=== PATIENT | male | born 1945 | race Caucasian/White ===

== ENCOUNTER 2024-08-16 09:05 | Day surgery (SDC) | payer MEDICARE, OTHER ==
[~2024-08-16] VITALS: Ht 160 cm; Wt 59.0 kg
[~2024-08-16 09:05] MED LIST: ALLOPURINOL300 MG PO; ASPIR-LOW81 MG PO; GLUCOPHAGE XR500 MG PO; IBLOOD GLUCOSE TEST STRIP 1 EA TEST VI PRN; LACTATED RINGER'S 1,000 ML IV SCH; LIDOCAINE HCL 1% 5 ML SDV INJ ONE; LIPITOR20 MG PO; MIDAZOLAM HCL 5 MG/5 ML VIAL IV PRN; NAPROXEN500 MG PO; TIROSINT50 MCG PO; VALTREX500 MG PO; ZESTRIL40 MG PO; fentaNYL citrate 100 MCG/2 ML VIAL IV PRN
[2024-08-16 09:44] VITALS: BP 145/72
[2024-08-16] MEDS ORDERED: MIDAZOLAM HCL 5 MG/5 ML VIAL ONE (10:17)
[2024-08-16] MEDS ORDERED: fentaNYL citrate 100 MCG/2 ML VIAL ONE (10:17)
--- NOTE | 2024-08-16 10:40 | NUR ---
PT NOT AVAILABLE FOR VISIT. PROVIDED PRAYER.
[2024-08-16] MEDS ORDERED: ATROPINE SULFATE 1 MG/ML VIAL ONE (10:41)
--- NOTE | 2024-08-16 11:24 | NUR ---
08/16/24 1124 Tea Diaz 1111-PATIENT ARRIVED TO PACU ON RA DROWSY LAYING LEFT LATERAL ABDOMEN SOFT. PATIENTS GOWN ON RIGHT SIDE WET FROM SWEATING. PATIENT ORIENTED TO PACU DENIES PAIN OR NAUSEA. IVF INFUSING. SR HR 60'S. 1122-PATIENT AWAKE DROWSY DENIES PAIN OR NAUSEA. PASSING GAS. RA 97% PATIENT REPORTS "SEE 2 OF YOU" ENCOURAGED TO REST.
[2024-08-16 11:47] LABS: BASOPHILS 0.4 % (0-2); EOSINOPHILS 0.6 % (0-6); HEMATOCRIT 40.4 % (35.0-50.0); HEMOGLOBIN 13.7 g/dL (12.0-18.0); LYMPHOCYTES 15.5 % (24-44); MCH 33.2 (27-36); MCHC 33.8 g/dl (30-36); MCV 98.2 fl (81-99); MONOCYTES 7.5 % (0-12); PLATELET COUNT 219 K/uL (140-440); RBC 4.11 M/ul (4.3-5.7); RDW 13.1 (10.5-15.0)
[2024-08-16 12:14] LABS: ALBUMIN 3.3 g/dL (3.4-5.0); ALBUMIN/GLOBULIN RATIO 1.14 (1.1-2.4); ANION GAP 13.3 (7-21); BILIRUBIN, TOTAL 0.5 mg/dL (0.2-1.0); BUN/CREATININE RATIO 16.66 (6.0-28.6); CALCIUM 8.9 mg/dL (8.5-10.1); CREATININE, SERUM 1.26 mg/dL (0.70-1.30); POTASSIUM 4.3 mmol/L (3.5-5.1); PROTEIN, TOTAL 6.2 g/dL (6.4-8.2)
[2024-08-16 12:26] VITALS: BP 124/64
[2024-08-17 12:19] LABS: CARCINOEMBRYONIC ANTIGEN 43.7 ng/mL (())
--- NOTE | 2024-08-17 13:29 | OR ---
[facility] [address], [place] [address] Signed DATE OF OPERATION: 08/16/2024 SURGEON: Jl John MD PREOPERATIVE DIAGNOSES: 1. Heme-positive stool. 2. Abnormal CT scan of cecum (questionable 1.8 cm polyp) March 2024. POSTOPERATIVE DIAGNOSES: 1. Extensive diverticulosis, sigmoid and left colon. 2. Ulcerated neoplasm, proximal ascending colon; normal cecum. PROCEDURE: Total colonoscopy to cecum with cold morcellation, biopsy of proximal ascending neoplasm of colon. ANESTHESIA: Intravenous sedation; fentanyl 200 mcg, Versed 6 mg. INDICATION: This 79-year-old white man is a patient of Dr. Tam. He is known to me from the past having undergone colonoscopy in 2019 showing extensive diverticulosis and a hyperplastic polyp. He has no symptoms of bleeding, diarrhea, or constipation. He underwent a CT scan under the direction of Dr. Tam on March 12, 2024 showing no acute abnormality, but a focal nodular mural enhancement of the cecum 1.7 cm in size, thought to represent polyp or neoplasm. He is also noted to have nonobstructive small left kidney stone and enlarged prostate and severe coronary artery calcifications as well as colonic diverticulosis without inflammation. He has no family history of colon cancer. He is admitted at this time to undergo colonoscopy on the basis of the CT scan finding and heme-positive stool. He understands the risk of colonoscopy including but not limited to bleeding, infection, and perforation and wished to proceed. FINDINGS: The prep was good. He had extensive diverticular changes of the sigmoid and left colon for which a fair amount of time was required for safe passage. Ultimately, complete colonoscopy was undertaken showing good visualization of the cecum and no neoplasm of the cecum or ileocecal valve but indeed an ulcerated neoplasm of the proximal ascending colon. This was biopsied and tattooed for future reference. The remaining colon showed no other polyp or neoplasm, only diverticulosis. Electronically Signed By: JL JOHN MD 08/17/24 1329 PATIENT NAME: KEYANNA GRAY OPERATIVE REPORT DATE OF : 47 REPORT #: [id number] PHYSICIAN: JL JOHN MD PCP: KLAUS TAM DO REPORT IS CONFIDENTIAL AND NOT TO BE RELEASED WITHOUT AUTHORIZATION [facility] [address], [place] [address] Signed DESCRIPTION OF PROCEDURE: The patient was brought to the endoscopy suite and placed in the lateral decubitus position, given intravenous sedation to the point of slurred speech and nystagmus. Digital rectal examination showed an enlarged prostate. I did not feel specific nodule, however. The scope was passed in the rectum and manipulated throughout the colon noting extensive diverticular changes of the sigmoid. Various maneuvers were required for manipulation through this area. He did have vagal symptoms and signs including mild hypotension and mild bradycardia (systolic pressure 78, pulse 42). Additional fluids were given. Atropine was at the ready but not required. He recovered from this with time and the scope was then manipulated through this sigmoid, which was as previously noted, extremely tortuous and difficult. Once beyond the sigmoid, however, passage of the scope was rather easy. The scope was ultimately advanced to the cecum. The ileocecal valve and appendiceal orifice were normal. Irrigation was undertaken. The scope was withdrawn and noted a few cm above the ileocecal valve was a subtle but real ulcerated somewhat flat neoplastic process. Quite obviously it was cancer. Biopsies were obtained. Using a sclerotherapy needle, spot endoscopic tattoo marking was undertaken of the distal most extent of the neoplasm. From that point on, the scope was withdrawn and examination throughout showed no other polyps or concerns, only diverticulosis. The rectum was normal. Scope was removed and the patient was taken to the recovery room in good condition. CONCLUDING DIAGNOSES: 1. Neoplasm, proximal ascending colon. 2. No sign of abnormality in cecum proper. 3. Enlarged prostate. PLAN: He will need resection of the right colon. In the meantime, we will obtain a CEA, PSA, CBC and Chem-20 and see him back in the office in 1 to 2 weeks for further treatment planning. Jl John MD JM/MODL /[id number] Electronically Signed By: JL JOHN MD 08/17/24 1329 PATIENT NAME: KEYANNA GRAY OPERATIVE REPORT DATE OF : 47 REPORT #: [id number] PHYSICIAN: JL JOHN MD PCP: KLAUS TAM DO REPORT IS CONFIDENTIAL AND NOT TO BE RELEASED WITHOUT AUTHORIZATION [address] [address] Signed cc: Klaus Tam DO Copies: KLAUS TAM DO ~ Electronically Signed By: JL JOHN MD 08/17/24 1329 PATIENT NAME: KEYANNA GRAY Ehsan OPERATIVE REPORT DATE OF : 47 REPORT #: [id number] PHYSICIAN: JL JOHN MD PCP: KLAUS TAM DO REPORT IS CONFIDENTIAL AND NOT TO BE RELEASED WITHOUT AUTHORIZATION
== END 2024-08-16 12:35 | disposition home or self-care (01) ==
LOC: DS 09:05
PROVIDERS: ATTEND Surgery
PROC: 0DBF8ZX Excision of Right Large Intestine, Via Natural or Artificial Opening Endoscopic, Diagnostic (ICD-10-PCS; principal; 2024-08-16 11:30)
DX: K57.30 Diverticulosis of large intestine without perforation or abscess without bleeding (principal); C18.2 Malignant neoplasm of ascending colon; E03.9 Hypothyroidism, unspecified; M10.9 Gout, unspecified; I10 Essential (primary) hypertension; Z98.890 Other specified postprocedural states; Z88.0 Allergy status to penicillin; Z79.899 Other long term (current) drug therapy; Z86.0100 Personal history of colon polyps, unspecified
CPT/HCPCS: 36415; 80053; 82378; 84153; 85025; 99153; G0500; J0461; J2250; J3010; J7121

== ENCOUNTER 2024-09-21 17:53 | Inpatient (IN) | payer MEDICARE, OTHER ==
[~2024-09-21] VITALS: Ht 160 cm; Wt 59.0 kg
[~2024-09-21 17:53] MED LIST changes: -IBLOOD GLUCOSE TEST STRIP 1 EA TEST VI PRN; -LACTATED RINGER'S 1,000 ML IV SCH; -LIDOCAINE HCL 1% 5 ML SDV INJ ONE; -MIDAZOLAM HCL 5 MG/5 ML VIAL IV PRN; +ZESTRIL10 MG PO; -ZESTRIL40 MG PO; -fentaNYL citrate 100 MCG/2 ML VIAL IV PRN
[2024-09-25 09:22] VITALS: BP 139/76
[2024-10-02] VITALS (8 sets, daily range): BP systolic 121–137; BP diastolic 53–69
[2024-10-02] MEDS ORDERED: LACTATED RINGER'S 1,000 ML IV SCH ×2 (05:00→11:00)
[2024-10-02] MEDS ORDERED: B COMPLEX1 EACH PO (06:17)
[2024-10-02] MEDS ORDERED: [UNRECOGNIZED DRUG - OTHER] PO (06:19)
[2024-10-02] MEDS ORDERED: LIDOCAINE HCL 1% 5 ML SDV INJ ONE (07:00)
[2024-10-02] MEDS ORDERED: CEFAZOLIN SODIUM 2 GM/20 ML SYR IV SCH ×2 (07:00→14:00)
[2024-10-02] MEDS ORDERED: HEParin SOD (PORCINE) 5,000 UNIT/ML SDV SUB-Q SCH (07:00)
[2024-10-02] MEDS ORDERED: IBLOOD GLUCOSE TEST STRIP 1 EA TEST VI PRN (07:00)
[2024-10-02] MEDS ORDERED: metroNIDAZOLE/SODIUM CHLORIDE 500 MG/100 ML PIGGYBACK IV SCH ×2 (07:00→14:00)
--- NOTE | 2024-10-02 07:19 | NUR ---
VISITED DURING SPIRITUAL CARE ROUNDS. PT IN OVERALL GOOD SPIRITS, NO IMMEDIATE NEEDS. ASSEMBLY MECHANIC PROVIDED SUPPORTIVE PRESENCE, HOSPITALITY, PRAYER, FACILITATED INTERACTION WITH THERAPY ANIMAL. PT EXPRESSED GRATITUDE.
[2024-10-02] MEDS ORDERED: ondansetron HCL 4 MG/2 ML VIAL ONE (07:34)
[2024-10-02] MEDS ORDERED: DEXAMETHASONE SOD PHOS 4 MG/ML VIAL ONE (07:34)
[2024-10-02] MEDS ORDERED: dexmedeTOMIDine HCl 200 MCG/2 ML VIAL ONE (07:34)
[2024-10-02] MEDS ORDERED: KETAMINE in NS 50 MG/5 ML SYR ONE (07:34)
[2024-10-02] MEDS ORDERED: MAGNESIUM SULFATE 1 GM/2 ML VIAL ONE ×2 (07:34→09:03)
[2024-10-02] MEDS ORDERED: fentaNYL citrate 100 MCG/2 ML VIAL ONE (07:34)
[2024-10-02] MEDS ORDERED: propofoL 200 MG/20 ML VIAL ONE (07:34)
[2024-10-02] MEDS ORDERED: SODIUM CHLORIDE 0.9% 40 ML IV ONE ×3 (07:35→09:26)
[2024-10-02] MEDS ORDERED: LIDOCAINE HCL 2% 5 ML SDV ONE ×2 (07:35→09:03)
[2024-10-02] MEDS ORDERED: ACETAMINOPHEN 1,000 MG/100 ML VIAL ONE (07:35)
[2024-10-02] MEDS ORDERED: ROCURONIUM BROMIDE 50 MG/5 ML SYR ONE ×2 (07:35→09:49)
[2024-10-02] MEDS ORDERED: ePHEDrine sulfate 50 MG/ML AMP ONE (07:54)
[2024-10-02] MEDS ORDERED: Ropivacaine HCl 0.5% 30 ML VIAL ONE (09:26)
[2024-10-02] MEDS ORDERED: SUGAMMADEX SODIUM 200 MG/2 ML ML ONE (09:49)
[2024-10-02] MEDS ORDERED: KETOROLAC TROMETHAMINE 30 MG/ML VIAL ONE (09:54)
[2024-10-02] MEDS ORDERED: ENOXAPARIN SODIUM 40 MG/0.4 ML SYR SUB-Q SCH (10:55)
[2024-10-02] MEDS ORDERED: HYDROmorphone HCL 1 MG/ML SYR IV PRN ×2 (11:00→11:15)
[2024-10-02] MEDS ORDERED: KETOROLAC TROMETHAMINE 15 MG/ML VIAL IV PRN (11:00)
[2024-10-02] MEDS ORDERED: ondansetron HCL 4 MG/2 ML VIAL IV PRN ×2 (11:00→11:15)
[2024-10-02] MEDS ORDERED: ACETAMINOPHEN 1,000 MG/100 ML VIAL IV PRN (11:00)
[2024-10-02] MEDS ORDERED: MEPERIDINE HCL 25 MG/1 ML VIAL IV PRN (11:15)
[2024-10-02] MEDS ORDERED: NALOXONE HCL 0.4 MG SYR IV PRN (11:15)
[2024-10-02] MEDS ORDERED: fentaNYL citrate 50 MCG/ML SDV IV PRN (11:15)
--- NOTE | 2024-10-02 11:44 | NUR ---
PT TO FLOOR WITH RN KARTIK. PT AWAKE AND ORIENTED BUT SLIGHTLY LOOPY FROM ANESTHESIA. VS WNL, BARAJAS DRAINING LIGHT YELLOW URINE. ABD DRESSING SLIGHT DRAINAGE NOTED. CALL LIGHT IN REACH, NO FURTHER NEEDS AT THIS TIME.
--- NOTE | 2024-10-02 11:46 | NUR ---
10/02/24 1146 Leni Silva 1039 PT ARRIVED IN PACU NON RESPONSIVE TO NOXIOUS STIMULI WITH OPA IN PLACE. CHIN LIFT HELD BY RN. 1053 PT REACTIVE. OPA REMOVED. 1100 DR AT BEDSIDE TALKING WITH PT. 1105 C/O ABD PAIN 5/10. DECLINED PAIN MED WHEN OFFERED. 1115 PT TALKING WITH STAFF ABOUT [facility] AND VOL[facility]TEER WORK. C/O ABD PAIN /10. DECLINED PAIN MED WHEN OFFERED. PILLOW TO ABD FOR COMFORT. 1128 TO ROOM 116 VIA BED. REPORT GIVEN TO RN. BED PLUGGED IN.
--- NOTE | 2024-10-02 12:45 | NUR ---
ADMINISTERED PRN FOR 5\10 PAIN. DRESSING REMAINS UNCHANGED WITH SMALL AMT DRAINAGE. CALL LIGHT IN REACH. CLEAR LIQ TRAY WITHIN REACH, PT DOESN'T FEEL LIKE IT YET. BARAJAS DRAINING LIGHT YELLOW URINE. VS STABLE.
[2024-10-02] MEDS ORDERED: SEVOFLURANE 250 ML BTL INH ONE (12:50)
--- NOTE | 2024-10-02 13:36 | NUR ---
IN ROOM FOR POST-OP VS. PT ALERT AND ORIENTED, ANSWERS APPROPRIATELY. ASSISTED PT WITH FINDING PHONE IN PERSONAL BELONGINGS BAG. CALL LIGHT IN HAND, NO OTHER NEEDS AT THIS TIME.
[2024-10-02] MEDS ORDERED: ACETAMINOPHEN 500 MG TAB PO PRN (14:00)
--- NOTE | 2024-10-02 14:03 | NUR ---
UR CLINICAL REVIEW: 2 MN FOR VERSALUS-PER CNC MACHINIST MEETS INPT CRITERIA FOR COLECTOMY WITH NEED FOR IV ABX AND PAIN CONTROL MEDICARE INPT 10/02/24 @ 1056 ORDER MATCHES REG NO AUTH REQUIRED PER MEDICARE GUIDELINES DISCHARGE TO HOME WHEN STABLE
--- NOTE | 2024-10-02 14:42 | NUR ---
IN ROOM TO DO LAST SET OF POST-OP VS. PT ALERT AND ORIENTED, BUT TALKING ABOUT GOING TO CHECK HIS ANTIFREEZE AND OIL LEVELS. EDUCATED PT THAT HE WOULD HAVE TO WAIT TO DO SO. VISITOR IN ROOM. ICE WATER REFRESHED. CALL LIGHT WITHIN REACH, NO FURTHER NEEDS AT THIS TIME.
--- NOTE | 2024-10-02 15:20 | NUR ---
IN ROOM WITH MINA SHARP TO ADMINISTER ABX AND PAIN MEDICATIONS. PT IN BED, TALKING WITH VISITOR. CALL LIGHT WITHIN REACH, NO OTHER NEEDS AT THIS TIME.
--- NOTE | 2024-10-02 15:57 | EKG ---
[facility] [address] [facility] [place] [address] Signed Normal sinus rhythm Normal ECG No previous ECGs available Confirmed by Delio Canseco MD () on 10/02/2024 3:57:15 PM Electronically Signed By: DELIO CANSECO MD 10/02/24 1557 PATIENT NAME: KEYANNA GRAY Electrocardiogram DATE OF : 47 PHYSICIAN: DELIO CANSECO MD REPORT #: [id number] REPORT IS CONFIDENTIAL AND NOT TO BE RELEASED WITHOUT AUTHORIZATION
[2024-10-02] MEDS ORDERED: LEVOTHYROXINE50 MCG PO (16:31)
--- NOTE | 2024-10-02 17:39 | NUR ---
IN ROOM TO DO PT ASSESSMENT, PT IN BED REMINISCING ABOUT WELL HIS DOG, WHO WAS "[place]" AFTER SHE . PT REPORTS THAT HIS DOG SIX MONTHS AGO. PT TEARFUL WHEN TALKING ABOUT DOG. CALL LIGHT IN REACH, NO FURTHER NEEDS AT THIS TIME.
--- NOTE | 2024-10-02 18:13 | NUR ---
PT AMBULATED LAP IN [place]. TOLERATED WELL. GIVEN PRN TORADOL. DRESSING HAS SMALL AMT MORE DRAINAGE.
--- NOTE | 2024-10-02 19:17 | NUR ---
RECEIVED REPORT FROM MINA SHARP. PT RESTING IN BED COMFORTABLY. DENIES NEEDS OR CONCERNS AT THIS TIME. CALL LIGHT WITHIN REACH.
--- NOTE | 2024-10-02 20:33 | NUR ---
PT RESTING IN BED. VSS. USES CALL LIGHT APPROPRIATELY. REPORTS PAIN TO MIDLINE ABD INC 5/10-PRN IV DILAUDID ADMINISTERED. LSC. CPOX IN PLACE-RA. HRR. SCD'S IN PLACE. BTA. ABD TENDER. NON-DISTENDED. DENIES NAUSEA AND FLATUS. TOLERATING CL LIQ DIET. LBM TODAY. MIDLINE ABD DRSG W/ 4 SMALL SPOTS BLOODY DRNG. BARAJAS IN PLACE-CLEAR YELLOW URINE. LFA IV W/ LR INFUSING AT 85MLS/HR. CALL LIGHT WITHIN REACH. PT GIVEN APPLEJUICE PER REQUEST.
--- NOTE | 2024-10-02 20:51 | NUR ---
STATLOCK PLACE AND DID A BARAJAS CARE. DENIES FURTHER NEEDS AT THIS TIME.
--- NOTE | 2024-10-02 22:45 | NUR ---
PT SLEEPING SOUNDLY, APPEARS COMFORTABLE. CALL LIGHT WITHIN REACH.
[2024-10-03] VITALS (12 sets, daily range): BP systolic 103–135; BP diastolic 51–73
--- NOTE | 2024-10-03 00:32 | NUR ---
NEW BAG LR TERRELL. PT REPORTS ABD PAIN-MEDCATED W/ PRN IV DILAUDID. BARAJAS CATH EMPTIED OF 100cc CLEAR YELLOW URINE. CALL LIGHT WITHIN REACH.
--- NOTE | 2024-10-03 02:04 | NUR ---
SLEEPING SOUNDLY, APPEARS COMFORTABLE.
--- NOTE | 2024-10-03 02:15 | NUR ---
DX: 10/02 RIGHT COLECTOMY BY ALVARO R/T ADENOCARCINOMA. MIDLINE INC. CL LIQ DIET. BARAJAS IN PLACE. IVF INFUSING. ANCEF AND FLAGYL.
--- NOTE | 2024-10-03 03:36 | NUR ---
PT AWAKE, SLEEPING BETWEEN CARE. DENIES NEEDS AT THIS TIME.
[2024-10-03 05:21] LABS: BASOPHILS 0.1 % (0.2-1.2); EOSINOPHILS 0 % (0.8-7.0); LYMPHOCYTES 4.5 % (21.8-53.1); MCH 33.2 PG (25.7-32.2); MCHC 33.3 g/dL (32.3-36.5); MCV 99.5 fL (79.0-92.2); MONOCYTES 4.5 % (5.3-12.2); NEUTROPHILS 90.7 % (34.0-67.9); PLATELET COUNT 247 K/uL (163-337); RBC 3.92 M/uL (4.63-6.08)
[2024-10-03 05:32] LABS: ANION GAP 14.4 (7-21); BUN/CREATININE RATIO 18.71 (6.0-28.6); CALCIUM 8.2 mg/dL (8.5-10.1); CREATININE, SERUM 1.87 mg/dL (0.70-1.30); POTASSIUM 4.4 mmol/L (3.5-5.1)
--- NOTE | 2024-10-03 05:43 | NUR ---
PT AWAKE, TALKATIVE. REPORTS ABD PAIN-MEDICATED W/ PRN IV DILAUDID. BTA, ABD TENDER. PASSING SOME FLATUS AND BELCHING. MIDLINE ABD INC W/ DRNG UNCHANGED FROM PREVIOUS ASSESSMENT.
--- NOTE | 2024-10-03 08:42 | NUR ---
Patient in bed, alert and oriented x3, no acute distress. Patient reports 5/10 abdominal pain, admin toradol 15mg iv and dilaudid 1mg iv at this time. Patient reports he slept well last night. No nausea. Active bowel tones x4 quadrants, pt reports passing flatus. Abdominal dressing unchanged, small amount of dry serosang drainage noted. Family at bedside. Patient instructed to call for needs, pt reports his understanding.
--- NOTE | 2024-10-03 10:01 | NUR ---
Patient up walking with die casting supervisor assist. Patient appears to be tolerating ambulation well, even gait noted.
--- NOTE | 2024-10-03 10:10 | NUR ---
HOURLY ROUNDING. PATIENT AND I WALKED TWO LAPS AROUND THE NURSE STATION. PATIENT IS TRACIE BACK IN BED
[2024-10-03] MEDS ORDERED: VITAMIN D350 MCG PO (10:33)
[2024-10-03] MEDS ORDERED: MOVE FREE JOIN1 EACH PO (10:33)
--- NOTE | 2024-10-03 10:34 | NUR ---
medications reconciled using pharmacy records and patient interview
--- NOTE | 2024-10-03 10:54 | NUR ---
PT NOT AVAILABLE FOR VISIT. PROVIDED PRAYER.
--- NOTE | 2024-10-03 10:55 | NUR ---
HOURLY ROUNDING. PATIENT IS SITTING IN BED READING A BOOK. A DATA SYSTEMS ANALYST WAS GIVEN TO CHARGE HIS PHONE. NO REQUEST AT THIS TIME. CALL LIGHT HAS BEEN PLACED WITHIN REACH
--- NOTE | 2024-10-03 11:59 | OR ---
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 PROCEDURE: Right colectomy with end-to-side ileocolostomy. ANESTHESIA: General endotracheal; Shahzad Self PLANNING ASSISTANT and Yohan Ramos PLANNING ASSISTANT and postoperative TAP block. INDICATION: This 79-year-old white man is a patient of Dr. Klaus Tam. The patient underwent a CT scan in March 2024, which was thought this showed a small polyp of the cecum. He underwent colonoscopy by me on August 16, 2024 and found to have a proximal ascending colon ulcerated mass, most likely consistent with colon cancer. A CEA was obtained which was markedly elevated at 47.3. The patient has had no rectal bleeding, abdominal pain, or other sign of problems. The CT scan of the abdomen was repeated which continues to show no evidence of lesion of liver, but did show pericolonic adenopathy with lymph nodes as large as 8 mm. I have recommended right colectomy. On this occasion, would recommend an open approach so as to maximize lymphadenectomy. The risk of bleeding, infection, anastomotic failure, other unforeseen complications, and so forth was all reviewed with him. He understands and wished to proceed. FINDINGS: Endomark tattoo dye was well demonstrated in the area just above the ileocecal valve junction. A bulky tumor was noted there. It did not penetrate into the retroperitoneum proper. There was some pericolonic adenopathy and some Endomark tattoo dye had delineated mesenteric drainage basin which was of course incorporated in the resection. Transverse colon elsewhere had no such finding. The duodenum was normal. The liver was palpably and visibly normal as was the gallbladder. The operation went without problem with wide resection of the mesentery and primary anastomosis in an end-to-side Electronically Signed By: JL JOHN MD 10/03/24 1159 PATIENT NAME: KEYANNA GRAY OPERATIVE REPORT DATE OF : 47 REPORT #: [id number] PHYSICIAN: JL JOHN MD PCP: KLAUS TAM DO REPORT IS CONFIDENTIAL AND NOT TO BE RELEASED WITHOUT AUTHORIZATION [facility] [address], [place] [address] Signed configuration. DESCRIPTION OF PROCEDURE: The patient was brought to the operating room, given a general endotracheal anesthetic. He had undergone a full bowel prep including oral antibiotics and preoperative antibiotics. Ancef and Flagyl were given. Sequential compression device stockings used and heparin subcutaneously administered. After satisfactory general endotracheal anesthesia a Ashley catheter was placed without problem. The abdomen was clipped and prepared with chlorhexidine solution and draped sterilely. Palpation of the abdomen upon relaxation still revealed no sign of palpable mass. An incision was made above and below the umbilicus and later extended cephalad somewhat. The abdomen was entered without problem. Intra-abdominal inspection showed no sign of ascites or carcinomatosis. Small bowel was normal. The liver was palpably normal as was the gallbladder. The bulky firm tumor in the proximal ascending colon was easily identified. A Bookwalter retractor was affixed to the table. Small bowel was retracted to the left side isolating well. Approximately 8 inches of the terminal ileum and the entire right colon and transverse colon. The transverse colonic omentum was elevated cephalad and the right colon more fully examined. Endomark tattoo dye had egressed into the retroperitoneal tissues a bit and some hazel uptake was noted corresponding to the ileocolic artery and the right colic artery. The white line of Toldt was incised and using blunt electrocautery dissection, the right colon rotated to the midline completely as was the terminal ileum. The duodenum was easily identified. Wide resection of mesentery was anticipated, but with care to avoid of course any problem to the superior mesenteric artery or vein. The area for resection including all of the right colon was delineated and electrocautery used to incise the mesentery. Sequential application of hemostats and ultimately tonsil clamps in the deeper layer centrally was used to secure the mesenteric vessels. The major trunks were secured with double application of 0 silk ties. An 80 mm RAIMUNDO stapling device was used to transect the terminal ileum approximately 6 inches from the ileocecal valve. Similarly, the right transverse colon was similarly divided. Specimen was passed for Pathology, opened on the back table and found to have a somewhat deeper ulcerated lesion as expected. Plans were then made for anastomosis. The stapled end of the colon was oversewn with interrupted 3-0 silk suture anticipating an end-to-side ileocolostomy. This was accomplished in a two-layer technique of interrupted 3-0 silk suture in the Electronically Signed By: JL JOHN MD 10/03/24 1159 PATIENT NAME: KEYANNA GRAY OPERATIVE REPORT DATE OF : 47 REPORT #: [id number] PHYSICIAN: JL JOHN MD PCP: KLAUS TAM DO REPORT IS CONFIDENTIAL AND NOT TO BE RELEASED WITHOUT AUTHORIZATION [place] [id number] Signed serosal layer and interrupted 3-0 Vicryl in the mucosal layer. Excellent viability to the both proximal and distal segments was noted and wide patency to the anastomosis also noted. Gloves for all the team members were changed and the mesentery defect was reapproximated with interrupted 3-0 silk suture. Irrigation was undertaken with sterile saline solution. There was no evidence of bleeding or other problems. The retroperitoneal structures were intact without sign of injury. The omentum was replaced over the abdominal contents and plans made for closure. The midline fascia was reapproximated with running bidirectional #1 PDS suture. Subcutaneous tissue irrigated and the skin closed with a subdermal absorbable clipping device. Steri-Strips were applied as was an Acticoat dressing. The patient then underwent bilateral TAP blocks by the lodge sales associate. He was ultimately extubated and transferred to the recovery room in good condition having suffered no complication. Sponge, needle, and instrument counts were as correct x3. Blood loss was less than 25 cc. MD ARTURO Jaffe/[place] /[id number] cc: Klaus Tam DO Copies: KLAUS TAM DO ~ Electronically Signed By: JL JOHN MD 10/03/24 1159 PATIENT NAME: KEYANNA GRAY OPERATIVE REPORT DATE OF : 47 REPORT #: [id number] PHYSICIAN: JL JOHN MD PCP: KLAUS TAM DO REPORT IS CONFIDENTIAL AND NOT TO BE RELEASED WITHOUT AUTHORIZATION
--- NOTE | 2024-10-03 12:04 | NUR ---
Admin dilaudid 1mg iv and tylenol 1000mg po for reported 6/10 abdominal pain. Patient denies nausea. IV fluids infusing per order.
--- NOTE | 2024-10-03 13:00 | NUR ---
Attempted to walk patient at this time. Patient has visitors at the moment.
--- NOTE | 2024-10-03 14:59 | NUR ---
Patient ambulating in hallway with bag sewer assist.
--- NOTE | 2024-10-03 15:29 | NUR ---
Patient went on a walk around nursing satation x3 with SBA. Patient is now laying in bed with call light in reach and no further needs at this time.
--- NOTE | 2024-10-03 16:32 | NUR ---
Admin dilaudid 1mg iv and toradol 15mg iv for reported 6/10 abdominal pain. Patient denies nausea. Pt to take a walk at 1730 this evening. Patient denies further needs at this time.
--- NOTE | 2024-10-03 18:00 | NUR ---
Patient ambulated x3 large laps, tolerated well. Pt back to bed post walk. Patient tolerating clear liquids well, no nausea. Iv fluids infusing per order. Pt has no further needs at this time, personal supplies and call light within reach.
--- NOTE | 2024-10-03 19:36 | NUR ---
RECEIVED REPORT FROM MINA BLAKE. PT RESTING IN BED, STATES IS READY TO AMBULATE WHENEVER BEFORE BED. CALL LIGHT IN REACH.
--- NOTE | 2024-10-03 19:45 | NUR ---
PT READY TO WALK. LOADING MANAGER SBA PT FOR 4 LAPS AROUND UNIT. PT GAIT STEADY. VITALS AND I&O OBTAINED AND PT BACK IN BED. PT STATES NO FURTHER NEEDS AT THIS TIME. CALL LIGHT WITHIN REACH.
--- NOTE | 2024-10-03 20:00 | NUR ---
PT JUST FINISHED AMBULATING X MULTIPLE LAPS IN HALLS W/ SERVICE AGENT PERCY GLEASON. VSS. USES CALL LIGHT APPROPRIATELY. REPORTS MIDLINE ABD PAIN 09/15, MEDICATED W/ PRN IV DILAUDID AND STRESSED ABD SPLINTING. LSC. HRR. SCD'S IN PLACE TO BLE. BTA, MILDLY TENDER TO PALPATION. ABD SOFT AND FLAT. PASSING SOME FLATUS AND MINIMAL BURPING. LBM 10/02. TOLERATING CL. LIQ DIET. BARAJAS W/ CLEAR YELLOW URINE. LFA IV INFUSING LR @ 85MLS/HR. MIDLINE ABD DRSG W/ MULTIPLE SMALL SPOTS OF DRIED DRNG. CALL LIGHT WITHIN REACH. PT USED IS X10 AFTER EDUCATION.
--- NOTE | 2024-10-03 21:17 | NUR ---
SLEEPING SOUNDLY, APPEARS COMFORTABLE.
--- NOTE | 2024-10-03 23:15 | NUR ---
PT SLEEPING SOUNDLY. APPEARS COMFORTABLE. BREATHING EVEN AND UNLABORED.
[2024-10-04] VITALS (8 sets, daily range): BP systolic 127–179; BP diastolic 65–76
--- NOTE | 2024-10-04 01:15 | NUR ---
SLEEPING SOUNDLY. APPEARS COMFORTABLE.
--- NOTE | 2024-10-04 04:14 | NUR ---
PT SLEEPING SOUNDLY-APPEARS COMFORTABLE.
--- NOTE | 2024-10-04 06:43 | NUR ---
JENN GRIMES'Maria E INTACT. REPORTS ABD PAIN THIS AM-MEDICATED W/ PRN IV TORADOL. ASSISTED PT TO SIT EOB. PT STATED HAS BEEN HAVING FLATUS SINCE ABOUT 0300. CALL LIGHT WITHIN REACH.
--- NOTE | 2024-10-04 07:18 | NUR ---
Pt report received from MINA Harris. Pt is sitting at edge of bed, legs dangling, bedside table in front of him, and he appears anxious, rubbing his head. He states that he doesn't know if he is feeling "gas" or surgical pain, but he is cranky and is feeling "mean" and is trying to "talk to myself" because he is "just feeling mean. When asked what he needs in this moment, he stated he doesn't know, that he's just trying not to snap at the staff. Encouraged pt to continue expressing his needs and how he is feeling, and advised him that I will be back with pain meds and to assist him with ambulation to encourage the passing of gas. He verbalized understanding. White board updated.
--- NOTE | 2024-10-04 08:10 | NUR ---
PATIENT IN BED AT THIS TIME. SHELLFISH PROCESSING LABORER CHARTED HOURLY ROUNDS. CALL LIGHT WITHIN REACH, NO FURTHER NEEDS AT THIS TIME.
[2024-10-04] MEDS ORDERED: ENOXAPARIN SODIUM 30 MG/0.3 ML SYR SUB-Q SCH (09:00)
--- NOTE | 2024-10-04 09:45 | NUR ---
PATIENT IN BED AT THIS TIME. POLICE RESERVES COMMANDER CHARTED I&O'S, RN STUDENT CHARTED VITALS. CALL LIGHT WITHIN REACH, NO FURTHER NEEDS.
--- NOTE | 2024-10-04 10:15 | NUR ---
In with pt for pain assessment after administration of dilaudid this a.m. Pt is resting supine in bed, scd's on, reports pain is 2 out of 10 at this time and he states he feels pretty good. Reinforced the importance of ambulating often per Dr. Frye's orders and pt is agreeable. Pt up to ambulate ruben, PERCY with student MINA Long.
--- NOTE | 2024-10-04 10:30 | NUR ---
Notified by SN Long, that the pt ambulated 4 laps in the hallway and tolerated that well, then he voided 50ml urine. She then bladder scanned him for a volume of 0.
--- NOTE | 2024-10-04 11:20 | NUR ---
INTO SEE PATIENT. PERSONAL HEALTH INFORMATION REVIEWED. PATIENT LIVES ALONE IN A HOUSE WITH 3 STEPS BUT HAS BUILT A RAMP FOR FUTURE USE. USES A CANE SOMETIMES. DOES NOT USE WALKER, WHEELCHAIR, OXYGEN OR CPAP. PATIENT DOES DRIVE AT [place]. DOES HAVE FRIENDS IN TOWN WHO WILL PICK HIM UP AT TIME OF DISCHARGE. DENIES ANY DIFFCULTY PAYING UTLITIES OR OBTAINING FOOD. DENIES ANY CM NEEDS AT THIS TIME.
--- NOTE | 2024-10-04 11:31 | NUR ---
Pt missed ambulation at 0830 d/t administration of IV dilaudid and pt statement that he feels "dizzy" after administration. Pt did ambulate later around 1030 and I will continue to monitor the number of times he is OOB today
--- NOTE | 2024-10-04 12:00 | NUR ---
In with pt with Dr. Melva meyers.
[2024-10-04] MEDS ORDERED: LACTATED RINGER'S 1,000 ML IV ONE (12:15)
[2024-10-04] MEDS ORDERED: OXYCODONE HCL 5 MG TAB PO PRN (12:15)
[2024-10-04] MEDS ORDERED: ACETAMINOPHEN 500 MG TAB PO PRN (12:15)
[2024-10-04] MEDS ORDERED: IBUPROFEN 600 MG TAB PO PRN (12:15)
--- NOTE | 2024-10-04 13:06 | NUR ---
Pt provided with PO Pain meds per emar, IVF LR Bolus running, Addie Diaz ambulating with pt in hallway at this time. Notified Student Nurse that the pt was going to be ambulating/needed to ambulate. Updated SN on meds administered and that pt was changed to Full Liq Diet per Dr. Frye.
--- NOTE | 2024-10-04 15:40 | NUR ---
PATIENT IN BED AT THIS TIME. FOOD COUNTER WORKER ASSISTED PATIENT IN WALKING 4 LAPS AROUND HALLS. CALL LIGHT WITHIN REACH, NO FURTHER NEEDS AT THIS TIME.
--- NOTE | 2024-10-04 16:34 | NUR ---
PATIENT IN BED AT THIS TIME. THIS SPEECH PROFESSOR OFFERED PATIENT A SHOWER, PATIENT REFUSED. CALL LIGHT WITHIN REACH, NO FURTHER NEEDS AT THIS TIME.
--- NOTE | 2024-10-04 18:14 | NUR ---
PATIENT IN BED AT THIS TIME. AD TERMINAL MAKEUP OPERATOR CHARTED VITALS AND I&O'S. CALL LIGHT WITHIN REACH, NO FURTHER NEEDS.
--- NOTE | 2024-10-04 18:22 | NUR ---
PRN PAIN MEDICATION ADMINISTERED, SEE MAR. PATIENT'S LEFT FOOT IS PALE AND COOL TO THE TOUCH. PEDAL PULSE IS 2+. PATIENT STATES THIS IS NORMAL FOR HIM. WARM BLANKET APPLIED TO BOTH OF PATIENT'S FEET. PATIENT HAS NO OTHER REQUESTS, CALL LIGHT AND PERSONAL BELONGINGS IN REACH.
--- NOTE | 2024-10-04 19:23 | NUR ---
RECEIVED REPORT FROM MINA RIVAS. PT SITTING EOB, READY TO AMBULATE WHEN STAFF AVAILABLE.
--- NOTE | 2024-10-04 20:09 | NUR ---
CHANNEL ACCOUNT MANAGER ASSISTED PT TO WALK 1 LAP AROUND UNIT. PT BACK IN BED AND CHANNEL ACCOUNT MANAGER OBTAINED VITALS AND I&O. PT STATES NO FURTHER NEEDS AT THIS TIME. CALL LIGHT WITHIN REACH.
--- NOTE | 2024-10-04 21:00 | NUR ---
PT RESTING IN BED. COMPLETED HS WALK W/ LEONORA GLEASON. USES CALL LIGHT APPROPRIATELY. VSS. REPORTS [facility] ABD PAIN 5/10-MEDICATED W/ PRN OXYCODONE. REMINDED PT TO USE ABD SPLINTING FOR PAIN WELL. LSC. IS AT BEDSIDE. HRR. SCD'S IN PLACE TO BLE. BT HYPERACTIVE. ABD SOFT AND FLAT. TENDER TO [facility] INC. PASSING FLATUS AND REPORTS 2 SM BM'S TODAY. MIGEL FULL LIQ DIET. DENIES NAUSEA. [facility] ABD DRSG W/ SPOTS OF DRIED DRNG. LFA IV INFUSING LR @ 85MLS/HR. CALL LIGHT WITHIN REACH. PT REPOSITIONED SELF TO RIGHT SIDE LAYING.
--- NOTE | 2024-10-04 21:58 | NUR ---
PT USED URINAL IND. REPORTS RESTING COMFORTABLY CURRENTLY.
[2024-10-05] VITALS (8 sets, daily range): BP systolic 138–156; BP diastolic 71–80
--- NOTE | 2024-10-05 00:26 | NUR ---
PT SLEEPING SOUNDLY. APPEARS COMFORTABLE. CALL LIGHT WITHIN REACH.
--- NOTE | 2024-10-05 02:07 | NUR ---
NEW BAG KD TEJADA, PT AWAKENS BRIEFLY, DENIES NEEDS.
--- NOTE | 2024-10-05 05:01 | NUR ---
PT AWAKE, REPORTS BEING COMFORTABLE. BTA, PASSING FLATS. USED URINAL W/O DIFFICULTY. CALL LIGHT WITHIN REACH.
--- NOTE | 2024-10-05 06:22 | NUR ---
DX: 10/02 RIGHT COLECTOMY R/T ADENOCARCINOMA. ABD PAIN-PRN MEDS NOW PO. IVF INFUSING. MIGEL FULL LIQ DIET. [facility] ABD INC W/ DRIED DRNG. AMBULATING IN HALLS Q 2 HRS WHILE AWAKE PER MD ORDERS.
--- NOTE | 2024-10-05 06:23 | NUR ---
SPECIAL AGENT SECRET SERVICE OBTAINED VITALS HI&O. PT STATES NO NEEDS AT THIS TIME. CALL LIGHT WITHIN REACH.
--- NOTE | 2024-10-05 06:43 | NUR ---
PT SLEEPING, APPEARS COMFORTABLE.
--- NOTE | 2024-10-05 07:00 | NUR ---
Pt report received from MINA Harris. SN Long present. Pt is awake, resting supine in bed, states he slept alright but also states he felt a little rough after 5pm yesterday (pt did ambulate the hallways several times throughout day shift, about 4 laps of the med-surg floor, each time). Currently he rates his pain a 5 out of 10 but states he isn't sure if it's because he might have to urinate or not. White board updated. Call light in reach.
--- NOTE | 2024-10-05 08:15 | NUR ---
INTO SEE PATIENT. PATIENT STATING HE WAS IN A BIT OF PAIN PATIENT SAID PRIMARY NURSE AWARE. HE HAD GONE 14 HOURS WITHOUT ANY PAIN MEDICINE. PATIENT TO DISCHARGE HOME WHEN MEDICALLY CLEARED. NO FUTHER NEEDS.
--- NOTE | 2024-10-05 09:45 | NUR ---
SN obtained vitals. Pt resting comfortably. call light within reach.
--- NOTE | 2024-10-05 10:28 | NUR ---
PATIENT IS IN BED AT THIS TIME, ORIENTATION AND MOBILITY INSTRUCTOR CHARTED I&O'S, AMMONIA REFRIGERATION WORKER SAID SHE GOT HIS VITALS AND WILL CHART THEM HERE SHORTLY. CALL LIGHT WITH IN REACH AND NOTHING ELSE NEEDED AT THIS TIME.
--- NOTE | 2024-10-05 11:39 | NUR ---
VISITED DURING SPIRITUAL CARE ROUNDS. PT GRIMACING, STATED DESIRE FOR PAIN RELIEF, EXPRESSED PEACE, DEVONTE SOURCE OF STRENGTH. FAMILY CENTERED SPECIALIST PROVIDED SUPPORTIVE PRESENCE, HOSPITALITY, PRAYER, ADVOCATED FOR PATIENT WITH NURSING STAFF. NURSING STAFF INDICATED INTENT TO CHECK ON PATIENT. PATIENT EXPRESSED GRATITUDE.
--- NOTE | 2024-10-05 11:57 | NUR ---
In with pt for med administration. Pt up to use urinal in bathroom then plans to ambulate hallways.
--- NOTE | 2024-10-05 12:25 | NUR ---
In with pt while Dr. Frye present. Dr. Frye removed abdominal dressing and informed pt he can have a shower today. Bathroom set up with items for pt to shower after lunch, and advised Aides Tamara and Rosario that the pt needs to ambulate at this time, so they can provide SBA.
--- NOTE | 2024-10-05 14:03 | NUR ---
Advised by operations architect that pt is complaining of pain. Pt is resting supine in bed, laughing and talking on his cell phone.
--- NOTE | 2024-10-05 14:39 | NUR ---
PATIENT WAS IN THE SHOWER, I ASSISTED HIM BACK TO BED. CLEANED UP THE SHOWER ROOM. TOOK VITALS AND TIDYED HIS ROOM, TOOK PATIENT ON A WALK AND BACK TO ROOM. CALL LIGHT WITH IN REACH AND NOTHING ELSE NEEDED AT THIS TIME.
--- NOTE | 2024-10-05 14:57 | NUR ---
Pt had a shower and states that it felt very good to take one. Pt now ambulating hallway, using a cane, with Aidharry Diaz.
--- NOTE | 2024-10-05 18:36 | NUR ---
PATIENT IS IN BED AT THIS TIME, COLLECTIONS SPECIALIST CHARTED VITALS AND I&O'S, COLLECTIONS SPECIALIST ASSISTED PATIENT WITH A WALK, HE BRUSHED HIS TEETH AND BACK TO BED. CALL LIGHT WITH IN REACH AND NOTHING ELSE NEEDED AT THIS TIME.
--- NOTE | 2024-10-05 19:15 | NUR ---
REPORT RECEIVED FROM ROB ENRIQUEZ. BOARD UPDATED. pt DENIES ANY NEEDS AT THIS TIME. CALL LIGHT WITHIN REACH.
--- NOTE | 2024-10-05 20:38 | NUR ---
MOSAIC WORKER OBTAINED VITALS AND I&O. PT STATES NO NEEDS AT THIS TIME. CALL LIGHT WITHIN REACH.
--- NOTE | 2024-10-05 21:30 | NUR ---
ASSESSMENT AND VITAL SIGNS DONE. [facility] HAS STERI STRIPS WITH MINIMAL DRAINAGE AND INTACT. IV ASSESSED, WNL. pt DENIES ANY OTHER NEEDS AT THIS TIME. CALL LIGHT WITHIN REACH.
--- NOTE | 2024-10-05 23:18 | NUR ---
pt RESTING IN THE BED EYES CLOSED. RR EVEN AND UNLABORED. CALL LIGHT WITHIN REACH.
--- NOTE | 2024-10-06 00:29 | NUR ---
IN RM TO CHECK ON pt. URINAL EMPTIED. pt DENIES ANY OTHER NEEDS AT THIS TIME. CALL LIGHT WITHIN REACH.
--- NOTE | 2024-10-06 02:15 | NUR ---
pt RESTING IN THE BED. URINAL EMPTIED. pt DENIES ANY OTHER NEEDS AT THIS TIME. CALL LIGHT WITHIN REACH.
--- NOTE | 2024-10-06 04:17 | NUR ---
pt RESTING IN THE BED WITH EYES CLOSED. RR EVEN AND UNLABORED. CALL LIGHT WITHIN REACH.
[2024-10-06 05:20] VITALS: BP 151/79
[2024-10-06 05:21] LABS: BASOPHILS 0.7 % (0.2-1.2); EOSINOPHILS 1.3 % (0.8-7.0); HEMATOCRIT 40.6 % (40.1-51.0); HEMOGLOBIN 13.4 g/dL (13.7-17.5); LYMPHOCYTES 15.8 % (21.8-53.1); MCH 32.7 PG (25.7-32.2); MONOCYTES 8.8 % (5.3-12.2); NEUTROPHILS 73.1 % (34.0-67.9); PLATELET COUNT 213 K/uL (163-337)
--- NOTE | 2024-10-06 05:21 | NUR ---
CADDY MASTER OBTAINED VITALS AND I&O. PT STATES NO NEEDS AT THIS TIME. CALL LIGHT WITHIN REACH.
[2024-10-06 05:31] LABS: ANION GAP 10.1 (7-21); BUN/CREATININE RATIO 12.5 (6.0-28.6); CALCIUM 8.5 mg/dL (8.5-10.1); CREATININE, SERUM 0.96 mg/dL (0.70-1.30); POTASSIUM 4.1 mmol/L (3.5-5.1)
--- NOTE | 2024-10-06 07:28 | NUR ---
MORNING REPORT RECIEVED FROM MINA SANTAMARIA. PT LAYING IN BED WITH EYES CLOSED, CHEST RISE EQUAL BILAT. PT HAS CALL LIGHT IN REACH AND WILL AMBULATE THE HALLS ONCE AWAKE THIS MORNING.
--- NOTE | 2024-10-06 08:15 | NUR ---
PATIENT IN BED AT THIS TIME. BUSINESS MGR CHARTED HOURLY ROUNDS. CALL LIGHT WITHIN REACH, NO FURTHER NEEDS AT THIS TIME.
--- NOTE | 2024-10-06 08:30 | NUR ---
PT SITTING UP IN BED AT THIS TIME, PT HAS NO CURRENT CONCERNS AND "PAIN IS MANAGABLE PT STATES". PT HAS NO OTHER CONCERNS AND CALL LIGHT IN REACH.
[2024-10-06 09:47] VITALS: BP 140/68
--- NOTE | 2024-10-06 09:50 | NUR ---
PATIENT IN BED AT THIS TIME. CYLINDER DIE MACHINE HELPER CAHRTED VITALS AND I&O'S. CYLINDER DIE MACHINE HELPER OFFERED PATIENT A SHOWER, PATIENT STATED HE WOULD THINK ABOUT HAING ONE LATER IN AFTERNOON. CALL LIGHT WITHIN REACH, NO FURTHER NEEDS.
--- NOTE | 2024-10-06 10:07 | NUR ---
PATIENT IN BED AT THIS TIME. WATERPROOFING MACHINE OPERATOR AND PATIENT WALKED 4 LAPS AROUND HALLS. CALL LIGHT WITHIN REACH, NO FURTHER NEEDS AT THIS TIME.
[2024-10-06 10:16] VITALS: BP 140/68
[2024-10-06] MEDS ORDERED: OXYCODONE HCL5 MG PO (11:41)
[2024-10-06] MEDS ORDERED: ACETAMINOPHEN500 MG PO (11:41)
[2024-10-06] MEDS ORDERED: IBUPROFEN600 MG PO (11:41)
--- NOTE | 2024-10-06 12:45 | NUR ---
PT DC PACKET GIVEN AND EXPLAINED TO PT AT THIS TIME, PT HAS NO CURRENT QUESTIONS AND HAS IV ACCESS REMOVED WNL ALL BELONGINGS RETURNED TO PT AND PT TRANSPORTATION IS ON THEIR WAY, PT HAS CALL LIGHT IN REACH.
--- NOTE | 2024-10-06 13:08 | NUR ---
PT GIVEN WRITTEN AND VERBAL INSTRUCTIONS PRIOR TO DC, PT HAS NO FUTHER QUESTIONS AT THIS TIME AND WAS TRASNPORTED VIA WC.
--- NOTE | 2024-10-08 09:24 | DS ---
[facility] [address] [place], [place] [address] Signed ADMISSION DATE: 10/02/2024 DISCHARGE DATE: 10/06/2024 REASON FOR ADMISSION: Proximal right colon adenocarcinoma for resection. HISTORY OF PRESENT ILLNESS: This 79-year-old white man is a patient Dr. Klaus Tam, has been identified as having a tumor in the right colon just above the junction of the ileum to the cecum. He is admitted to undergo right colectomy. CEA preoperatively is 47.3. A CT scan shows no sign of metastatic disease, but did show suspicious adenopathy of the right colonic mesentery. PERTINENT PHYSICAL EXAMINATION: GENERAL: Relatively thin white man, in no acute distress. NECK: Trachea is midline. CHEST: Clear. HEART: Regular without murmur. ABDOMEN: Soft and nontender. There is no palpable mass. EXTREMITIES: Show no clubbing, cyanosis, or edema. HOSPITAL COURSE: On October 02, 2024, he underwent right colectomy with end-to-side ileocolostomy. 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 Postoperatively, he was maintained on a clear liquid diet the night of surgery, advanced promptly to full liquids and ultimately a regular diet. By day of discharge, he is ambulating well, tolerating a regular diet, has minimal incisional pain with oral analgesia and has had bowel movements. Follow up plan; he will call my office on Tuesday to set up an appointment for four weeks or so. He is instructed to lift no more than 20 pounds for the next month. He should walk on a daily basis to avoid blood clots in the legs. DISCHARGE MEDICATIONS: 1. Ibuprofen 600 mg p.o. q.6 hours as needed for moderate pain #60, refill one. 2. Oxycodone 5 mg one tablet p.o. q.6 hours as needed for greater pain #10. 3. Tylenol 500 mg two tablets p.o. q.6 hours as needed for pain #60. 4. He will continue his usual medications of allopurinol 300 mg p.o. daily, atorvastatin 20 mg p.o. daily, lisinopril 10 mg p.o. daily, vitamin B complex one tablet p.o. daily. Electronically Signed By: JL JOHN MD 10/08/24 0924 PATIENT NAME: KEYANNA GRAY DISCHARGE SUMMARY DATE OF : 47 REPORT #: [id number] PHYSICIAN: JL JOHN MD PCP: KLAUS TAM DO REPORT IS CONFIDENTIAL AND NOT TO BE RELEASED WITHOUT AUTHORIZATION [facility] [address] [place], [place] [address] Signed 5. L-carnitine lipoic acid one tablet p.o. b.i.d. 6. Synthroid 50 mcg p.o. daily. 7. Vitamin D3 2000 units p.o. twice a day. 8. Glucosamine chondroitin 1 tab p.o. daily. DISCHARGE DIAGNOSES: 1. Right colon adenocarcinoma, status post right colectomy, October 02, 2024. 2. Hypertension. 3. Hypothyroidism. Jl John MD JM/MODL /[id number] cc: Klaus Tam DO Copies: KLAUS TAM DO ~ Electronically Signed By: JL JOHN MD 10/08/24 0924 PATIENT NAME: KEYANNA GRAY DISCHARGE SUMMARY DATE OF : 47 REPORT #: [id number] PHYSICIAN: JL JOHN MD PCP: KLAUS TAM DO REPORT IS CONFIDENTIAL AND NOT TO BE RELEASED WITHOUT AUTHORIZATION
--- NOTE | 2024-10-11 16:56 | PATH ---
[facility] [address] [facility] [place], [place] [address] Signed SPECIMEN(S): A RIGHT COLON WITH MASS SPECIMEN SOURCE: A. RIGHT COLON WITH MASS CLINICAL HISTORY: Right colon cancer. FINAL PATHOLOGIC DIAGNOSIS: Right colon with mass: - Invasive moderately differentiated adenocarcinoma. - See checklist. COLON AND RECTUM: Resection Applies To: Specimen A. SPECIMEN Procedure: Right hemicolectomy TUMOR Tumor Site: Ascending colon Histologic Type: Adenocarcinoma Histologic Grade: G2, moderately differentiated Tumor Size: Greatest dimension (Centimeters) - 4.1 x 2.3 x 1.9 cm Tumor Extent: Invades through muscularis propria into the pericolonic or perirectal tissue Macroscopic Tumor Perforation: Not identified Lymphatic and / or Vascular Invasion: Not identified Perineural Invasion: Not identified Number of Tumor Buds: 5 per 'hotspot' field Tumor Budding Score: Intermediate (5-9) Type of Polyp in which Invasive Carcinoma Arose: None identified Treatment Effect: No known presurgical therapy MARGINS Margin Status for Invasive Carcinoma: All margins negative for invasive carcinoma Closest Margin(s) to Invasive Carcinoma: Retroperitoneal soft tissue margin. Distance from Invasive Carcinoma to Closest Margin: 4.5 cm Margin Status for Non-Invasive Tumor: All margins negative for high-grade dysplasia / intramucosal carcinoma and low-grade dysplasia REGIONAL LYMPH NODES Regional Lymph Node Status: Tumor present in regional lymph node(s) Number of Lymph Nodes with Tumor: 1 PATIENT NAME: KEYANNA ESTRADA PATHOLOGY DATE OF : 47 REPORT #: [id number] PHYSICIAN: BONG PATHOLOGY PCP: ANU TAM DO REPORT IS CONFIDENTIAL AND NOT TO BE RELEASED WITHOUT AUTHORIZATION [facility] [address] [place], [place] [address] Signed Number of Lymph Nodes Examined: 28 Tumor Deposits: Present Number of Tumor Deposits: 1 pTNM CLASSIFICATION (AJCC 8th Edition) pT Category: pT3 pN Category: pN1a COMMENT: As part of the [facility] clinical quality rn program the case has been reviewed by a second pathologist (REYNA). Microsatellite instability testing previously reported on case [id number] was reported as "normal pattern". JVR MICROSCOPIC EXAMINATION: Histologic sections of all submitted blocks are examined by light microscopy. These findings, together with the gross examination, support the pathologic diagnosis. A cytokeratin AE1/3 immunostain is performed with appropriate controls on block A7 and supports the diagnosis. A cytokeratin 20 immunostain performed on block A7 is negative within the tumor. A calretinin immunostain is performed on block A7 and highlights mesothelial cells and is focally positive within the tumor. A CDX2 immunostain is performed with appropriate controls on block A7 and is positive within tumor nuclei. Immunostains performed on block A7 with appropriate controls for cytokeratin seven, Wilm's Tumor antibody, OCT4, D2-40, Sall4, and TTF-1, are all negative within the tumor cells. Immunostain performed with appropriate controls on block A7 for villin are positive within the tumor cells. JVR GROSS DESCRIPTION: The specimen, labeled and designated "Rito Estrada, right colon with mass," is received in formalin and consists of a portion of previously opened right colon, terminal ileum with an attached appendix and pericolonic adipose tissue. The right colon is 13.5 cm in length and has an average internal circumference of 6.5 cm. The terminal ileum is 7.4 cm in length and has an average internal circumference of 3.5 cm. The appendix measures 6.4 x 0.7 cm. The serosal surface is subramanian-pink and smooth, and adherent to red membranous tissue with a PATIENT NAME: KEYANNA ESTRADA PATHOLOGY DATE OF : 47 REPORT #: [id number] PHYSICIAN: BONG WILLIAMSON PCP: ANU TAM DO REPORT IS CONFIDENTIAL AND NOT TO BE RELEASED WITHOUT AUTHORIZATION [facility] [address] [place], [place] [address] Signed black dye discoloration. The serosa around this is a adherent membranous tissue is puckered and inked blue at the time of grossing. Upon opening 4.1 x 2.3 x 1.9 cm pink centrally ulcerated mass with heaped up edges. This mass is located 8.2 cm from the distal resection margin, 8.5 cm from the proximal resection margin, 4.5 cm from the closest retroperitoneal soft tissue resection margin, and 10.2 cm from the vascular root resection margin. Involvement of the appendiceal orifice or ileocecal valve is not grossly identified. Sectioning through the mass reveals extension through the muscularis propria and into the adjacent to pericolonic adipose tissue. The mass abuts the blue inked serosal surface. Adjacent to the mass within the pericolonic adipose tissue is a 3.6 x 3.5 x 3.0 cm area of yellow-white matted lymph nodes. These lymph nodes are grossly positive for tumor. The remaining mucosa is yellow-subramanian and finely granular. The right colon has an average wall thickness of 0.7 cm. The mucosa of the terminal ileum is yellow-subramanian and finely granular. The terminal ileum has an average wall thickness of 0.8 cm. The appendix displays a yellow-subramanian mucosa with a pinpoint lumen. Upon dissection of the attached pericolonic adipose tissue multiple possible lymph nodes are grossly identified. Several of these lymph nodes are grossly positive for tumor. Ingot Supervisor sections are submitted in 19 cassettes. Cassette Summary: (A1) distal resection margin, shave (A2) proximal resection margin, shave (A3) vascular root resection margin, shave (A4) retroperitoneal soft tissue resection margin, shave (A5) appendix (A6) mass to adjacent pericolonic adipose tissue (A7) mass to uninvolved bowel wall and serosal surface and area of puckering (A8) additional sections of mass (A9) omentum (A10-A11) access service representative sections of matted lymph nodes adjacent to mass (A12) one possible lymph node, trisected (A13) six possible lymph nodes, submitted whole (A14) five possible lymph nodes, submitted whole (A15) four possible lymph nodes, submitted whole (A16) four possible lymph nodes, submitted whole (A17) five possible lymph nodes, submitted whole PATIENT NAME: KEYANNA ESTRADA PATHOLOGY DATE OF : 47 REPORT #: [id number] PHYSICIAN: BONG WILLIAMSON PCP: ANU TAM DO REPORT IS CONFIDENTIAL AND NOT TO BE RELEASED WITHOUT AUTHORIZATION [address] [address] Signed (A18) two possible lymph nodes each bisected one arbitrarily inked (A19) one possible lymph node grossly positive for tumor, access service representative sections FB (under the direct supervision of a pathologist) The Gross Description was prepared using a voice recognition system. The report was reviewed for accuracy; however, sound-alike word errors, addition and/or deletions may occur. If there is any question about this report, please contact Client Services. ADDITIONAL NOTES: Immunohistochemical and/or in situ hybridization studies if performed in this case included appropriate positive controls that reacted as expected. This test was developed and its performance characteristics determined by [facility]. It has not been cleared or approved by the U.S. Food and Drug Administration. The FDA has determined that such clearance or approval is not necessary. This test is used for clinical purposes. It should not be regarded as investigational or for research. [facility] is certified under the Clinical Laboratory Improvement Amendments of 1988 (CLIA) as qualified to perform high complexity clinical laboratory testing. PERFORMING LABORATORY: Technical component was performed by [facility], [address] [place] [address] (CLIA# [id number]). Professional interpretation was performed by [facility] [place] - [address] [place] [address] [place] [address] (CLIA#: [id number]). Diagnostician: John Ayala MD Pathologist Electronically Signed 10/11/2024 Copies: ~ PATIENT NAME: KEYANNA ESTRADA PATHOLOGY DATE OF : 47 REPORT #: [id number] PHYSICIAN: BONG PATHOLOGY PCP: ANU TAM DO REPORT IS CONFIDENTIAL AND NOT TO BE RELEASED WITHOUT AUTHORIZATION
== END 2024-10-06 13:08 | disposition home or self-care (01) | DRG 331 ==
LOC: DSVR 10-02 05:43 → MS 10-02 05:43
PROVIDERS: ADMIT Surgery; ATTEND Surgery
PROC: 0D1B0Z4 Bypass Ileum to Cutaneous, Open Approach (ICD-10-PCS; 2024-10-02)
PROC: 0DTK0ZZ Resection of Ascending Colon, Open Approach (ICD-10-PCS; principal; 2024-10-02 07:30)
DX: C18.2 Malignant neoplasm of ascending colon (principal); R59.0 Localized enlarged lymph nodes; I10 Essential (primary) hypertension; E03.9 Hypothyroidism, unspecified; Z88.0 Allergy status to penicillin; Z88.2 Allergy status to sulfonamides; Z79.890 Hormone replacement therapy; Z79.899 Other long term (current) drug therapy
CPT/HCPCS: 00790; 36415; 76942; 80048; 85025; 88309; 88341; 88342; 93005; 93010; A9270; J0131; J0690; J1100; J1171; J1644; J1650; J1885; J2003; J2405; J2704; J2795; J3010; J3475; J3490; J7121

== ENCOUNTER 2025-01-01 07:40 | Day surgery (SDC) | payer MEDICARE, OTHER ==
[~2025-01-01] VITALS: Ht 160 cm; Wt 61.0 kg
[~2025-01-01 07:40] MED LIST changes: +ACETAMINOPHEN500 MG PO; +B COMPLEX1 EACH PO; +CEFAZOLIN SODIUM 2 GM/20 ML SYR IV SCH; +HEParin SOD (PORCINE) 5,000 UNIT/ML SDV SUB-Q SCH; +IBLOOD GLUCOSE TEST STRIP 1 EA TEST VI PRN; +IBUPROFEN600 MG PO; +LACTATED RINGER'S 1,000 ML IV SCH; +LEVOTHYROXINE50 MCG PO; +LIDOCAINE HCL 1% 5 ML SDV INJ ONE; +MOVE FREE JOIN1 EACH PO; +OXYCODONE HCL5 MG PO; +VITAMIN D350 MCG PO; +[UNRECOGNIZED DRUG - OTHER] PO
[2025-01-01 08:32] VITALS: BP 151/71
[2025-01-01] MEDS ORDERED: LOW DOSE ASPIRI81 MG PO (08:47)
[2025-01-01] MEDS ORDERED: LIDOCAINE HCL 2% 5 ML SDV ONE (09:00)
[2025-01-01] MEDS ORDERED: DEXAMETHASONE SOD PHOS 4 MG/ML VIAL ONE ×2 (09:00)
[2025-01-01] MEDS ORDERED: fentaNYL citrate 100 MCG/2 ML VIAL ONE (09:00)
[2025-01-01] MEDS ORDERED: HEParin SOD (PORCINE) 5,000 UNIT/ML SDV ONE ×2 (09:05→09:10)
[2025-01-01] MEDS ORDERED: SODIUM CHLORIDE 0.9% 100 ML IV ONE (09:10)
--- NOTE | 2025-01-01 10:14 | NUR ---
01/01/25 1014 Angela Patrick 1011: PT ARRIVES TO PACU WITH ORAL AIRWAY IN PLACE. HE REQUIRES A SLIGHT JAW THRUST TO PREVENT OBSTRUCTION. REPORT RECEIEVED FROM ADJUNCT FACULTY MATHEMATICS DEPARTMENT AND INFORMATICS ANALYST.
[2025-01-01] MEDS ORDERED: OXYCODON-ACETA1 EAC2 PO (10:28)
[2025-01-01] MEDS ORDERED: IBUPROFEN600 MG PO (10:28)
[2025-01-01] MEDS ORDERED: ACETAMINOPHEN500 MG PO (10:28)
[2025-01-01] MEDS ORDERED: LACTATED RINGER'S 1,000 ML IV SCH (10:30)
[2025-01-01] MEDS ORDERED: ACETAMINOPHEN 500 MG TAB PO PRN (10:30)
[2025-01-01] MEDS ORDERED: IBUPROFEN 600 MG TAB PO PRN (10:30)
[2025-01-01] MEDS ORDERED: NALOXONE HCL 0.4 MG SYR IV PRN ×2 (10:30→10:45)
[2025-01-01] MEDS ORDERED: OXYCODONE/APAP 7.5/325 TAB PO PRN (10:30)
[2025-01-01] MEDS ORDERED: fentaNYL citrate 50 MCG/ML SDV IV PRN (10:45)
[2025-01-01 10:48] VITALS: BP 173/74
[2025-01-01 11:45] VITALS: BP 173/64
--- NOTE | 2025-01-01 12:41 | NUR ---
1050: PATIENT BACK IN DAY SURGERY ROOM FROM PACU. RATES PAIN 2/10 AROUND NECK INCISION. RIGHT NECK INCISION WITH SMALL AMOUNT OF RED DRAINAGE. RIGHT CHEST DRESSING CDI. 1130: PATIENT ASSISTED OOB AND TO BATHROOM. GAIT STEADY. VOID PER URINAL. GAIT STEADY BACK TO ROOM. SCDs ON. CALL LIGHT WITHIN REACH. 1145: VS CHECKED. RATES PAIN 2/10. SMALL AMOUNT OF RED DRAINAGE ON NECK DRESSING, UNCHANGED. RIGHT CHEST DRESSING CDI. IV SITE SALINE LOCKED. PATIENT UP TO BATHROOM AGAIN. GAIT STEADY. PATIENT GETTING DRESSED. 1205: DISCHARGE INSTRUCTIONS GIVEN TO PATIENT. 1208: IV DC'D WNL. TIP INTACT. DRESSING APPLIED. 1211: PATIENT DISCHARGED TO HOME VIA WHEELCHAIR WITH FRIEND.
[2025-01-01] MEDS ORDERED: SEVOFLURANE 250 ML BTL INH ONE (17:13)
--- NOTE | 2025-01-05 14:10 | OR ---
[facility] [address], [place] [address] Signed DATE OF OPERATION: 01/01/2025 SURGEON: Jl John MD PREOPERATIVE DIAGNOSIS: Stage III colon cancer, status post right colectomy. POSTOPERATIVE DIAGNOSIS: Stage III colon cancer, status post right colectomy. PROCEDURES: 1. Right ultrasound-guided venous access to internal jugular vein. 2. Right internal jugular Port-A-Cath placement. 3. Surgeon-directed fluoroscopy. ANESTHESIA: General LMA, Yohan Seamons, REGISTERED NURSE and local 3 mL of 0.25% Marcaine with epinephrine. INDICATION: This 79-year-old white man is a patient of Dr. Tam, underwent right colectomy by al on October 02, 2024 for adenocarcinoma of the proximal ascending colon. His pathology report confirmed 1 out of 20 lymph nodes positive for malignancy and a tumor size of 4.1 cm. He has reviewed his options with Dr. Velez, medical oncologist, and chemotherapy has been recommended. He is now here for Port-A-Cath placement. He understands the risk of bleeding, infection, pneumothorax, need for other indicated procedures as regards Port-A-Cath placement, and wished to proceed. FINDINGS: Dark nonpulsatile blood was noted from the right internal jugular vein. Access was undertaken with ultrasound guidance. Catheter was placed over the right pectoral area and good function is noted at conclusion of the procedure. Catheter configuration is smooth and without kink or other abnormality. He tolerated procedure well and it is highly functional. At conclusion of procedure, aspirating blood well and easily infusing. DESCRIPTION OF PROCEDURE: The patient was brought to the operating room, placed in supine position, given a general LMA type anesthetic. Preoperative antibiotic Ancef was given. Sequential compression device stockings were used. The head was turned somewhat to the left with relatively flat support. The neck and upper chest was prepared with a chlorhexidine Electronically Signed By: JL JOHN MD 01/05/25 1410 PATIENT NAME: KEYANNA GRAY OPERATIVE REPORT DATE OF : 47 REPORT #: [id number] PHYSICIAN: JL JOHN MD PCP: ANU TAM DO REPORT IS CONFIDENTIAL AND NOT TO BE RELEASED WITHOUT AUTHORIZATION [facility] [address], [place] [address] Signed solution and draped sterilely. Using a sterile, sheath protected SonoSite ultrasound probe, the right internal jugular vein was interrogated easily identifying it. Under direct visualization using the Seldinger technique, the right internal jugular vein was accessed with the needle and dark nonpulsatile blood was noted. A flexible J-wire was passed down the wire. Fluoroscopy confirmed the wire to be in the right internal jugular vein. Fluoroscopy was used to confirm the wire was in the right heart system. A small amount of local anesthetic was injected transversely in the right pectoral area and a transverse incision was made and dissection carried through the subcutaneous tissue with electrocautery. He has a thin body habitus. Just superficial to the pectoralis fascia, a pocket was created inferiorly. The site in the right neck was incised with an 11 blade and using the dilator and subsequently dilator and peel-away sheath introducer, the dilator was passed over the wire. The wire and dilator removed showing vigorous retrograde dark nonpulsatile bleeding. A previously inspected Groshong type catheter with a Bard port system was passed down the sheath and stabilized and the sheath removed without problem. Aspiration showed easy aspiration of blood. Under fluoroscopic control, the tip of the catheter was withdrawn to the atriocaval junction and subsequently flushed with heparinized saline. Using the tunneling device, the catheter was delivered to the port pocket site. The port had been previously secured partially with 2-0 Vicryl sutures to the pectoralis fascia. The catheter was cut to the appropriate length and within close collar attached to the port device. The port was secured to the pectoralis fascia with 2-0 Vicryl suture. Aspiration on the port with an angled Arce needle showed easy withdrawal of blood and easy infusion of saline. Fluoroscopy was once again used to confirm the configuration of the catheter as it entered the vein without kink or impediment. The tip of the catheter was appropriately placed as well. The small incision in the right lateral neck was secured with interrupted Vicryl and the port pocket secured with interrupted 2-0 Vicryl and a running subcuticular 3-0 Vicryl for the skin. Steri-Strips were applied at each site. Acticoat dressing was applied to the port site and OpSite to the right lateral neck. Blood loss was less than 10 mL. Sponge, needle, and instrument counts reported as correct x3. Electronically Signed By: JL JOHN MD 01/05/25 1410 PATIENT NAME: KEYANNA GRAY OPERATIVE REPORT DATE OF : 47 REPORT #: [id number] PHYSICIAN: JL JOHN MD PCP: ANU TAM DO REPORT IS CONFIDENTIAL AND NOT TO BE RELEASED WITHOUT AUTHORIZATION [facility] [address] [place] [address] Signed MD ARTURO Jaffe/WILMERL /[id number] cc: DO Oni Tabares MD Copies: ANU TAM ROBERT C MD ~ Electronically Signed By: JL JOHN MD 01/05/25 1410 PATIENT NAME: KEYANNA GRAY OPERATIVE REPORT DATE OF : 47 REPORT #: [id number] PHYSICIAN: JL JOHN MD PCP: ANU TAM DO REPORT IS CONFIDENTIAL AND NOT TO BE RELEASED WITHOUT AUTHORIZATION
== END 2025-01-01 12:11 | disposition home or self-care (01) ==
LOC: DS 07:40
PROVIDERS: ATTEND Surgery
PROC: 0JH63XZ Insertion of Tunneled Vascular Access Device into Chest Subcutaneous Tissue and Fascia, Percutaneous Approach (ICD-10-PCS; principal; 2025-01-01 09:50)
DX: C18.2 Malignant neoplasm of ascending colon (principal); E03.9 Hypothyroidism, unspecified; I10 Essential (primary) hypertension; Z79.890 Hormone replacement therapy; Z79.899 Other long term (current) drug therapy; Z88.0 Allergy status to penicillin; Z88.2 Allergy status to sulfonamides; Z90.49 Acquired absence of other specified parts of digestive tract
CPT/HCPCS: 00532; 71045; 77001; C1788; J0690; J1100; J1644; J2003; J2405; J2704; J3010; J7121

== ENCOUNTER 2025-01-24 15:11 | Inpatient (IN) | payer MEDICARE, OTHER ==
[~2025-01-24] VITALS: Ht 160 cm; Wt 61.1 kg
[~2025-01-24 15:11] MED LIST changes: -CEFAZOLIN SODIUM 2 GM/20 ML SYR IV SCH; -HEParin SOD (PORCINE) 5,000 UNIT/ML SDV SUB-Q SCH; -IBLOOD GLUCOSE TEST STRIP 1 EA TEST VI PRN; -LACTATED RINGER'S 1,000 ML IV SCH; -LIDOCAINE HCL 1% 5 ML SDV INJ ONE; +LOW DOSE ASPIRI81 MG PO; +OXYCODON-ACETA1 EAC2 PO
[2025-01-24] MEDS ORDERED: CEFEPIME HCL 2 GM in SODIUM CHLORIDE 0.9% 100 ML IV ONE (16:15)
[2025-01-24] MEDS ORDERED: HYDROmorphone HCL 1 MG/ML SYR IV PRN (16:15)
[2025-01-24] MEDS ORDERED: VANCOMYCIN HCL 1,500 MG in DEXTROSE 5% 500 ML IV ONE (16:15)
[2025-01-24] MEDS ORDERED: SODIUM CHLORIDE 0.9% 1,000 ML IV ONE (16:15)
[2025-01-24 16:28] LABS: MCH 34.2 PG (25.7-32.2); MCHC 36.3 g/dL (32.3-36.5); MCV 94.1 fL (79.0-92.2); RBC 3.54 M/uL (4.63-6.08)
[2025-01-24 16:43] LABS: ALT (SGPT) 18.0 U/L (14-59); AST (SGOT) 12.0 U/L (15-37); GLOMERULAR FILTRATION RATE,EST 65.0 mL/min (>60); PROTEIN, TOTAL 5.1 g/dL (6.4-8.2); UREA NITROGEN 27.0 mg/dL (7-18)
[2025-01-24 16:49] LABS: BANDS, MANUAL DIFF 27; LYMPHOCYTES, MANUAL DIFF 18; MONOCYTES, MANUAL DIFF 14; NEUTROPHILS, MANUAL DIFF 41
[2025-01-24 16:59] LABS: BLOOD/HGB, URINE NEGATIVE (Negative); KETONE, URINE SMALL (Negative); LEUK ESTERASE, URINE NEGATIVE (negative); NITRITE, URINE NEGATIVE (negative)
[2025-01-24 17:07] LABS: BACTERIA, URINE NONE SEEN /hpf (negative); CASTS, URINE NONE SEEN \\lpf; CRYSTALS, URINE NONE SEEN (0-1+); EPITHELIAL CELLS, URINE SQUAMOUS 1+ /lpf (0-1+)
[2025-01-24 17:08] LABS: REFLEX CULTURE, URINE No (No)
[2025-01-24] MEDS ORDERED: POTASSIUM CHLORIDE 10 MEQ/100 ML BAG IV SCH ×3 (17:15→23:30)
[2025-01-24] MEDS ORDERED: HYDROmorphone HCL 1 MG/ML SYR IV ONE (18:15)
[2025-01-24] MEDS ORDERED: LACTOBACILLUS RHAMNOSUS GG 1 EACH CAP PO SCH ×2 (19:26→22:15)
[2025-01-24] MEDS ORDERED: LACTATED RINGER'S 1,000 ML IV SCH (19:30)
[2025-01-24] MEDS ORDERED: ACETAMINOPHEN 325 MG TAB PO PRN (19:30)
[2025-01-24] MEDS ORDERED: PANTOPRAZOLE SODIUM 40 MG TABEC PO SCH ×2 (19:30→22:15)
--- NOTE | 2025-01-24 21:00 | NUR ---
PATIENT TO FLOOR VIA STRETCHER. PATIENT TRANSFERRED TO BED USING 1P SBA. VS OBTAINED AND RECORDED. PATIENT EDUCATED TO ROOM AND CALL LIGHT. BED ALARM ON. PATIENT DENIES FURTHER NEEDS AT THIS TIME. CALL LIGHT IN REACH. RADIOLOGY RN REMAINS IN ROOM.
[2025-01-24 21:11] VITALS: BP 123/68
[2025-01-24] MEDS ORDERED: CEFEPIME HCL 1 GM in DEXTROSE 5% 100 ML IV SCH (22:00)
[2025-01-24] MEDS ORDERED: POTASSIUM CHLORIDE 10 MEQ/100 ML BAG IV ONE (22:15)
--- NOTE | 2025-01-24 22:54 | NUR ---
PATIENT IN BED WITH HOB RAISED, EYES OPEN, CHEST RISE EVEN AND UNLABORED. CALL LIGHT AND PERSONAL BELONGINGS IN REACH OF PATIENT. SCHEDULED INFUSIONS INFUSING WITHOUT DIFFICULTY, ASSESMENT COMPLETED. PATIENT DENIES CONCERNS AT THIS TIME.
--- NOTE | 2025-01-24 23:04 | NUR ---
CALL LIGHT ANSWERED. PT NEEDED TO USE BATHROOM. EMPLOYMENT EDUCATIONAL COORD 1PA TO BSC. PT VOIDED AND ASSISTED BACK TO BED. PT STATES NO FURTHER NEEDS AT THIS TIME. CALL LIGHT WITHIN REACH AND BED ALARM ON.
--- NOTE | 2025-01-24 23:10 | NUR ---
MD DANIELLE ON FLOOR. NEW ORDERS RECEIVED. VERIFIED USING REPEATBACK METHOD.
--- NOTE | 2025-01-24 23:30 | NUR ---
PATIENT IN BED, EYES OPEN, CHEST RISE EVEN AND UNLABORED. ASSESMENT COMPLETED. PATIENT REFUSED ENTIRE BODY SKIN CHECK AT THIS TIME AND REPORTS HE WILL KEEP HIS PANTS ON HE IS COLD. PATIENT PROVIDED WITH BLANKETS. PATIENT EDUCATION PROVIDED ON IMPORTANCE OF SKIN CHECK. PATIENT REPORTS HE HAS ONE SCRATCH ON HIS RIGHT LOWER LEG, THIS RN VISUALIZED. NATURAL GAS PLANT TECHNICIAN MARIA LUISA REPORTS SHE DID NOT VISUALIZE ANY SKIN ABNORMALITIES WHEN PATIENT WAS ON THE COMMODE. CALL LIGHT AND PERSONAL BELONGINGS IN REACH OF PATIENT. PATIENT DENIES CONCERNS AT THIS TIME.
[2025-01-25] VITALS (12 sets, daily range): BP systolic 114–123; BP diastolic 55–67
--- NOTE | 2025-01-25 00:03 | NUR ---
PATIENT IN BED, EYES OPEN, CHEST RISE EVEN AND UNLABORED. SCHEDULED IV INFUSION STARTED AND INFUSING WITHOUT DIFFICULTY. CALL LIGHT AND PERSONAL BELONGINGS IN REACH OF PATIENT.
--- NOTE | 2025-01-25 01:53 | NUR ---
SUPERVISOR FIBER LOCKING OBTAINED VITALS AND I&O. PT STATES NO NEEDS AT THIS TIME. CALL LIGHT WITHIN REACH AND BED ALARM ON.
--- NOTE | 2025-01-25 02:10 | NUR ---
PATIENT IN BED, EYES CLOSED, CHEST RISE EVEN AND UNLABORED. SCHEDULED IV INFUSION STARTED AND INFUSING WITHOUT DIFFICULTY. CALL LIGHT AND PERSONAL BELONGINGS IN REACH OF PATIENT. NO APPARENT NEEDS NOTED AT THIS TIME.
[2025-01-25] MEDS ORDERED: POTASSIUM CHLORIDE 10 MEQ/100 ML BAG IV ONE (03:00)
--- NOTE | 2025-01-25 03:32 | NUR ---
CALL LIGHT ANSWERED. PT NEEDED TO USE BATHROOM. MECHANICAL RELIABILITY ENGINEER ASSISTED PT TO EDGE OF BED TO USE URINAL. PT UNABLE TO USE URINAL AND MECHANICAL RELIABILITY ENGINEER 1PA TO BSC. PT VOIDED AND HAD SMALL LIQUID BM. PT ASSISTED BACK TO BED. PT STATES NO FURTHER NEEDS AT THIS TIME. CALL LIGHT WITHIN REACH AND BED ALARM ON.
--- NOTE | 2025-01-25 04:08 | NUR ---
PATIENT IN BED, EYES CLOSED, CHEST RISE EVEN AND UNLABORED. CALL LIGHT AND PERSONAL BELONGINGS IN REACH OF PATIENT. IV FLUID INFUSING WITHOUT DIFFICULTY. NO APPARENT NEEDS NOTED AT THIS TIME.
[2025-01-25 05:57] LABS: BASOPHILS 1.1 % (0.2-1.2); EOSINOPHILS 1.3 % (0.8-7.0); LYMPHOCYTES 9.4 % (21.8-53.1); MCH 34.2 PG (25.7-32.2); MCHC 36.8 g/dL (32.3-36.5); MCV 92.9 fL (79.0-92.2); MONOCYTES 24.1 % (5.3-12.2); NEUTROPHILS 62.3 % (34.0-67.9); RBC 3.22 M/uL (4.63-6.08)
[2025-01-25 06:06] LABS: GLOMERULAR FILTRATION RATE,EST 81.0 mL/min (>60); UREA NITROGEN 19.0 mg/dL (7-18)
--- NOTE | 2025-01-25 06:36 | NUR ---
PATIENT IN BED, EYES OPEN, CHEST RISE EVEN AND UNLABORED. PATIENT ASSISTED TO BEDSIDE COMMODE AND BACK TO BED. PATIENT DENIES CONCERNS AT THIS TIME. CALL LIGHT AND PERSONAL BELONGINGS IN REACH OF PATIENT.
--- NOTE | 2025-01-25 07:12 | NUR ---
Pt report received from MINA Sanchez and MINA John. Pt is resting supine in bed, eyes closed, breathing is regular, even, and non-labored. White board updated. IVF running at ordered rates. Side rails up x4, call light in reach.
[2025-01-25] MEDS ORDERED: POTASSIUM CHLO20 ME1 PO (09:07)
[2025-01-25] MEDS ORDERED: DIPHENOXYLATE-1 EACH PO (09:07)
[2025-01-25] MEDS ORDERED: LORAZEPAM1 MG PO (09:08)
[2025-01-25] MEDS ORDERED: ONDANSETRON ODT8 MG PO (09:44)
[2025-01-25] MEDS ORDERED: DEXAMETHASONE4 MG PO (09:44)
--- NOTE | 2025-01-25 09:44 | NUR ---
MED REC COMPLETE
--- NOTE | 2025-01-25 10:28 | NUR ---
PATIENT IS IN BED AT THIS TIME, COMMUNITY SPORTS COORDINATOR CHARTED VITALS AND I&O'S, FAMILY IN ROOM, CALL LIGHT WITH IN REACH AND NOTHING ELSE NEEDED AT THIS TIME.
--- NOTE | 2025-01-25 10:29 | NUR ---
PATIENT IN BED AT THIS TIME. RUBBER LINER ASSISTED PATIENT TO BEDSIDE COMMODE AND THEN BACK TO BED. RUBBER LINER SENT STOOL SAMPLE OFF TO LAB. CALL LIGHT WITHIN REACH, NO FURTHER NEEDS AT THIS TIME.
--- NOTE | 2025-01-25 10:35 | NUR ---
VISITED DURING SPIRITUAL CARE ROUNDS. PT TIRED BUT IN OVERALL GOOD SPIRITS; NO IMMEDIATE NEEDS. WHEEL ADJUSTER PROVIDED SUPPORTIVE PRESENCE, HOSPITALITY, PRAYER. PT EXPRESSED GRATITUDE.
--- NOTE | 2025-01-25 11:12 | NUR ---
INTO SEE PATIENT. PATIENT LIVES ALONE. HAS SUPPORT FROM HIS FRIENDS. PATIENT HAS A RAMP INTO HIS HOME. DENIES ANY DIFFCULTY GETTING IN. HAS A CANE AND WALKER IF NEEDED. DRIVES AT BASELINE. DOES NOT HAVE OXYGEN OR A CPAP. DENIES ANY DIFFCULTY PAYING UTILITIES OR OBTAINING FOOD. NO FUTHER CM NEEDS AT THIS TIME. FRIENDS WILL TAKE HIM HOME WHEN MEDICALLY CLEARED.
[2025-01-25] MEDS ORDERED: PHARMACY RENAL DOSE ADJUSTMENT 1 DOSE MISC PO SCH (12:00)
--- NOTE | 2025-01-25 13:54 | NUR ---
UR CLINICAL REVIEW: 2MN KRISTY, MEETS OBS FOR HYPOKALEMIA POTASSIUM 2.5, DIARRHEA, PROBIOTICS, IV ANTIBIOTICS, IV FLUIDS, TREND LABS MEDICARE OBS 01/24/2025 @ 1930 ORDER MATCHES REG NO AUTH REQUIRED PER MEDICARE RULES PLAN TO DC TO HOME WHEN MEDICALLY READY 01/26/2025
--- NOTE | 2025-01-25 15:48 | NUR ---
NASAL SWAB DONE AND SENT TO LAB BY THIS RN. PT TOLERATED WELL. NO NEEDS AT THIS TIME. CALL LIGHT IN REACH.
[2025-01-25 16:27] LABS: INFLUENZA B NAA NEGATIVE (NEGATIVE); RESPIRATORY SYNCYTIAL VIR NAA NEGATIVE (NEGATIVE)
[2025-01-25] MEDS ORDERED: IBUPROFEN 600 MG TAB PO PRN (16:45)
[2025-01-25] MEDS ORDERED: VANCOMYCIN HCL 125 MG CAP PO SCH (17:00)
--- NOTE | 2025-01-25 18:08 | NUR ---
PT RESTING IN BED. ONE VISITOR IN ROOM. URINE AND COMMODE EMPTIED. TRASH REMOVED AND ROOM CLEANED. PT WANTS DINNER TRAY KEPT IN ROOM, MAY EAT LATER. 10 % EATEN CURRENTLY, PT TALKING TO VISITOR. CALL LIGHT WITHIN REACH, ICE WATER ALSO WITHIN REACH OF PT.
--- NOTE | 2025-01-25 19:54 | NUR ---
REPORT RECEIVED FROM MINA RIVAS. PATIENT IN BED WITH HOB RAISED, EYES OPEN, CHEST RISE EVEN AND UNLABORED. PATIENT DENIES CONCERNS AT THIS TIME.
[2025-01-25] MEDS ORDERED: CEFEPIME HCL 2 GM in DEXTROSE 5% 100 ML IV SCH (21:00)
--- NOTE | 2025-01-25 22:00 | NUR ---
PATIENT IN BED, EYES OPEN, CHEST RISE EVEN AND UNLABORED. PATIENT ASSISTED TO BEDSIDE COMMODE AND BACK TO BED. ASSESMENT COMPLETED. SCHEDULED IV INFUSION INFUSING. IV FLUIDS INFUSING WITHOUT DIFFICULTY. PATIENT DENIES CONCERNS AT THIS TIME. CALL LIGHT AND PERSONAL BELONGINGS IN REACH OF PATIENT. BED ALARM ON.
[2025-01-26] VITALS (10 sets, daily range): BP systolic 119–148; BP diastolic 55–66
--- NOTE | 2025-01-26 00:40 | NUR ---
PATIENT IN BED, EYES CLOSED, CHEST RISE EVEN AND UNALBORED. CALL LIGHT AND PERSONAL BELONGINGS IN REACH OF PATIENT. IV FLUID INFUSING WITHOUT DIFFICULTY. NO APPARENT NEEDS NOTED AT THIS TIME.
--- NOTE | 2025-01-26 04:28 | NUR ---
PATIENT IN BED, EYES CLOSED, CHEST RISE EVEN AND UNLABORED. IV FLUID INFUSING WITHOUT DIFFICULTY. CALL LIGHT AND PERSONAL BELONGINGS IN REACH OF PATIENT. NO APPARENT NEEDS NOTED AT THIS TIME.
[2025-01-26] MEDS ORDERED: LEVOTHYROXINE SODIUM 50 MCG TAB PO SCH (06:00)
[2025-01-26 06:05] LABS: MCH 33.7 PG (25.7-32.2); MCHC 36.6 g/dL (32.3-36.5); MCV 92.2 fL (79.0-92.2); RBC 3.32 M/uL (4.63-6.08)
[2025-01-26 06:21] LABS: ALT (SGPT) 15.0 U/L (14-59); AST (SGOT) 13.0 U/L (15-37); GLOMERULAR FILTRATION RATE,EST 78.0 mL/min (>60); PHOSPHORUS, INORGANIC 1.3 mg/dL (2.5-4.9); PROTEIN, TOTAL 4.4 g/dL (6.4-8.2); UREA NITROGEN 16.0 mg/dL (7-18)
--- NOTE | 2025-01-26 06:21 | NUR ---
PATIENT IN BED, EYES OPEN, CHEST RISE EVEN AND UNLABORED. PATIENT ASSISTED FROM COMMODE BACK TO BED. I AND O, VITAL SIGNS, MEWS, AND ASSESMENT COMPLETED. ORDERED LABS DRAWN. PATIENT DENIES CONCERNS AT THIS TIME. CALL LIGHT AND PERSONAL BELONGINGS IN REACH OF PATIENT. BED ALARM ON.
[2025-01-26 06:24] LABS: BANDS, MANUAL DIFF 21; EOSINOPHILS, MANUAL DIFF 2; LYMPHOCYTES, MANUAL DIFF 5; MONOCYTES, MANUAL DIFF 5; NEUTROPHILS, MANUAL DIFF 67
--- NOTE | 2025-01-26 07:02 | NUR ---
MD CANSECO UPDATED VIA TELEPHONE BY THIS RN REGARDING PATIENTS AM LABS. NO NEW ORDERS. STATES HE WILL COME DOWN TO THE FLOOR.
--- NOTE | 2025-01-26 07:07 | NUR ---
Pt report received from MINA Sanchez and MINA John. Pt is resting supine in bed, eyes closed but awakens easily to quiet noise. Pt states he needs to use the commode. SBA as pt pivot transfers from bed to commode. Call light in reach. White board updated.
--- NOTE | 2025-01-26 08:38 | NUR ---
PATIENT IN BED AT THIS TIME. SLOT FLOORMAN CHARTED HOURLY ROUNDS. CALL LIGHT WITHIN REACH, NO FURTHER NEEDS.
[2025-01-26] MEDS ORDERED: POTASSIUM PHOSPHATE 30 MMOL in DEXTROSE 5% 500 ML IV ONE (09:00)
--- NOTE | 2025-01-26 09:45 | NUR ---
PATIENT IN BED AT THIS TIME. BEEF CATTLE FARM MANAGER CHARTED VITALS AND I&O'S. CALL LIGHT WITHIN REACH, NO FURTHER NEEDS AT THIS TIME.
--- NOTE | 2025-01-26 13:00 | NUR ---
RECIEVED REPORT FROM MINA RIVAS. ASSUMING CARE OF PT.
--- NOTE | 2025-01-26 14:19 | NUR ---
PATIENT IN CHAIR AT THIS TIME. SAND SLINGER OPERATOR CHARTED VITALS AND I&O'S. SAND SLINGER OPERATOR ASSISTED PATIENT FROM BED TO CHAIR, SAND SLINGER OPERATOR CHANGED PATIENTS LINENS. CALL LIGHT WITHIN REACH, NO FURTHER NEEDS AT THIS TIME.
[2025-01-26] MEDS ORDERED: PANTOPRAZOLE SODIUM 40 MG TABEC PO SCH (16:57)
[2025-01-26] MEDS ORDERED: SIMETHICONE 80 MG CHEW PO PRN (17:00)
--- NOTE | 2025-01-26 18:34 | NUR ---
PATIENT IN BED AT THIS TIME. DENSITY CONTROL PUNCHER CHARTED VITALS AND I&O'S. CALL LIGHT WITHIN REACH, NO FURTHER NEEDS AT THIS TIME.
--- NOTE | 2025-01-26 19:50 | NUR ---
RECEIVED REPORT. PT RESTING IN BED. NO NEEDS AT THIS TIME.
--- NOTE | 2025-01-26 21:02 | NUR ---
PT REQUESTING TO GET UP TO BSC. PT HAD LOOSE BM AND BACK TO BED. ASSESSMENT COMPLETE. PT HAS NO FURTHER NEEDS. CALL LIGHT WITH IN REACH.
--- NOTE | 2025-01-26 23:58 | NUR ---
PT UP TO BSC. REQUESTING TO SIT THERE FOR A MINUTE. CALL LIGHT WITH IN REACH.
[2025-01-27] VITALS (7 sets, daily range): BP systolic 120–139; BP diastolic 59–70
--- NOTE | 2025-01-27 00:15 | NUR ---
PT BACK TO BED FROM BSC, HAD A LOOSE BM. PT RESTING IN BED NOW. NO NEEDS AT THIS TIME. CALL LIGHT WITH IN REACH.
--- NOTE | 2025-01-27 01:28 | NUR ---
PATIENT RESTING ON HIS LEFT SIDE, EYES CLOSED. CALL LIGHT WITH IN REACH.
--- NOTE | 2025-01-27 03:47 | NUR ---
PATIENT RESTING IN BED EYES CLOSED. CALL LIGHT WITH IN REACH.
[2025-01-27 05:26] LABS: BASOPHILS 0.1 % (0.2-1.2); EOSINOPHILS 2.2 % (0.8-7.0); LYMPHOCYTES 7.6 % (21.8-53.1); MCH 34.0 PG (25.7-32.2); MCHC 37.3 g/dL (32.3-36.5); MCV 91.3 fL (79.0-92.2); MONOCYTES 11.2 % (5.3-12.2); NEUTROPHILS 76.8 % (34.0-67.9); RBC 3.32 M/uL (4.63-6.08)
--- NOTE | 2025-01-27 05:26 | NUR ---
VITALS AND ASSESSMENT COMPLETE. BLOOD DRAWN FROM PORT AND SENT TO LAB. PT RESTING IN BED. NO NEEDS AT THIS TIME. CALL LIGHT WITH IN REACH.
[2025-01-27 05:49] LABS: ALT (SGPT) 12.0 U/L (14-59); AST (SGOT) 12.0 U/L (15-37); GLOMERULAR FILTRATION RATE,EST 93.0 mL/min (>60); PHOSPHORUS, INORGANIC 1.6 mg/dL (2.5-4.9); PROTEIN, TOTAL 4.4 g/dL (6.4-8.2); UREA NITROGEN 11.0 mg/dL (7-18)
--- NOTE | 2025-01-27 07:07 | NUR ---
Pt report received from MINA Nunez. Pt is resting supine in bed, awake, A&O. Denies any needs at this time. Pt reports he slept well and is feeling a bit better. Assessment done at this time. Side rails up x4, call light and bedside table in reach. White board updated.
[2025-01-27] MEDS ORDERED: POTASSIUM PHOSPHATE 30 MMOL in DEXTROSE 5% 500 ML IV ONE ×2 (09:00→19:45)
[2025-01-27] MEDS ORDERED: MAGNESIUM SULFATE 2 GM/50 ML BAG IV ONE (09:00)
--- NOTE | 2025-01-27 10:43 | NUR ---
pt has one visitor in the room. PT HAS WATER NEXT TO HIM AND CALL LIGHT WITHIN REACH. PT REPORTS NEEDING NOTHING MORE AT THIS TIME.
--- NOTE | 2025-01-27 14:15 | NUR ---
PT HAD A VISITOR IN ROOM EARLIER, BUT FOLLOWING LUNCH GONE. DID NOT WANT LINEN CHANGE, BUT GOT WATER NEXT TO THE BED AND PT REQUESTED DESERT REMAIN IN ROOM. CALL LIGHT WITHIN REACH, URINAL EMPTIED. PT REQUESTED NOTHING MORE AT THIS TIME.
--- NOTE | 2025-01-27 14:22 | NUR ---
PT RESTING IN BED. NO VISITORS IN ROOM, TV OFF. GOT PT FRESH ICE WATER. PT HAS CALL LIGHT NEXT TO HIM AND REQUESTS NOTHING MORE AT THIS TIME.
--- NOTE | 2025-01-27 18:21 | NUR ---
PT RESTING IN BED, SAID HE "JUST WENT THROUGH A ROUGH SPELL". CALL LIGHT WITHIN REACH. THIS CHANNEL SPECIALIST HELPED PT ARRANGE HIS SIDE TABLE SO HE COULD REACH HIS WATER AND SALAD THAT HE KEPT FROM DINNER. CALL LIGHT WITHIN REACH. PT REPORTED NEEDING NOTHING MORE AT THIS TIME.
--- NOTE | 2025-01-27 18:24 | NUR ---
TOOK TRASH OUT ANSD HELPED PT REARRANGE TRAY FOR COMFORT CARE.
[2025-01-27 18:27] LABS: GLOMERULAR FILTRATION RATE,EST 91.0 mL/min (>60); PHOSPHORUS, INORGANIC 2.2 mg/dL (2.5-4.9); UREA NITROGEN 13.0 mg/dL (7-18)
--- NOTE | 2025-01-27 19:35 | NUR ---
REPORT RECEIVED FROM MINA RIVAS. pt RESTING IN BED WITH EYES CLOSED, BREATHING EQUAL AND ULABORED. NO DISTRESS NOTED. CALL LIGHT IN REACH.
--- NOTE | 2025-01-27 22:00 | NUR ---
IN ROOM FOR MEDICATION ADMINISTRATION. pt SLEEPING, AWAKENS TO VOICE. ALERT AND ORIENTED. IV SITE AND PORT FLUSHED WNL. IV MEDICATIONS INFUSING PER ORDERS. pt BELCHING, PRN SIMETHICONE ADMINISTERED. VSS. ASSESSMENT COMPLETE. BSC EMPTIED, GREEN LIQUID STOOL MIXED WITH UNMEASURED VOID. CALL LIGHT IN REACH. pt DENIES ADDITIONAL NEEDS.
--- NOTE | 2025-01-27 23:33 | NUR ---
IV PUMP ALARMING, OCCLUSION. pt ON BSC FOR BM INDEPENDENTLY. NO ADDITIONAL NEEDS.
[2025-01-28] VITALS (8 sets, daily range): BP systolic 130–140; BP diastolic 58–67
--- NOTE | 2025-01-28 02:20 | NUR ---
CHECKED ON pt. RESTING IN BED WITH EYES CLOSED ON LEFT SIDE. BREATHING EQUAL AND UNLABORED. NO DISTRESS NOTED.
--- NOTE | 2025-01-28 06:30 | NUR ---
pt AWAKE. ASSESSMENT COMPLETE. BOWEL TONES ACTIVE. pt CONTINUES TO HAVE MULTIPLE LOOSE STOOLS. STATES DIDN'T REST BECAUSE OF BMS. LABS DRAWN FROM PORT PER POLICY. IVF NOW INFUSING WNL. CALL LIGHT IN REACH.
[2025-01-28 06:45] LABS: MCH 33.5 PG (25.7-32.2); MCHC 36.5 g/dL (32.3-36.5); MCV 91.8 fL (79.0-92.2); RBC 3.31 M/uL (4.63-6.08)
[2025-01-28 07:00] LABS: ALT (SGPT) 12.0 U/L (14-59); AST (SGOT) 11.0 U/L (15-37); GLOMERULAR FILTRATION RATE,EST 91.0 mL/min (>60); PHOSPHORUS, INORGANIC 2.7 mg/dL (2.5-4.9); PROTEIN, TOTAL 4.6 g/dL (6.4-8.2); UREA NITROGEN 6.0 mg/dL (7-18)
[2025-01-28 07:05] LABS: EOSINOPHILS, MANUAL DIFF 1; LYMPHOCYTES, MANUAL DIFF 18; MONOCYTES, MANUAL DIFF 4; NEUTROPHILS, MANUAL DIFF 77
--- NOTE | 2025-01-28 07:25 | NUR ---
Pt report received from MINA Leblanc. Pt is resting supine in bed with the blankets over his head, but as soon as I open the door, he says "good morning" and a visitor entered immediately behind me. White board updated. Call light in reach.
[2025-01-28] MEDS ORDERED: POTASSIUM CHLORIDE 40 MEQ,LIDOCAINE HCL 1% 40 MG in DEXTROSE 5% 250 ML IV ONE (08:00)
--- NOTE | 2025-01-28 09:30 | NUR ---
INTO SEE PATIENT. PATIENT STILL PLANS TO D/C WHEN MEDICALLY CLEARED. NO FUTHER CM NEEDS AT THIS TIME.
--- NOTE | 2025-01-28 11:02 | NUR ---
VISITED DURING SPIRITUAL CARE ROUNDS. PT EXPRESSED AWARENESS OF CONDITION, HOPE FOR RECOVERY. FILAMENT TESTER PROVIDED SUPPORTIVE PRESENCE, HOSPITALITY, PRAYER, FACILITATED INTERACTION WITH THERAPY ANIMAL. PT EXPRESSED GRATITUDE.
--- NOTE | 2025-01-28 11:10 | NUR ---
UR CONCURRENT REVIEW: 2 MN FOR VERSALUS-PER OPERATIONAL RISK MANAGER MEETS INPT FOR COLITIS, HYPOKELEMIA AND DIARRHEA WITH NEED FOR MONITORING, IV ABX AND IVF. MEDICARE OBS TO INPT 01/27/25 @ 1434 ORDER MATCHES REG NO AUTH REQUIRED PER MEDICARE GUIDELINES DISCHARGE TO HOME WHEN STABLE
--- NOTE | 2025-01-28 17:26 | NUR ---
CHG BED BATH COMPLETE. CURTAINS WERE LOWERED FOR PATIENT COMFORT.
--- NOTE | 2025-01-28 19:20 | NUR ---
REPORT RECEIVED FROM ROB ENRIQUEZ. pt RESTING IN THE BED. BOARD UPDATED. pt REQUESTED PRN GAS RELIEF. THIS RN DICUSSED PLAN TO BRING IN THE MED AFTER REPORT. pt AGREED. pt DENIES ANY OTHER NEEDS AT THIS TIME. CALL LIGHT WITHIN THIS TIME.
--- NOTE | 2025-01-28 19:50 | NUR ---
pt C/O STOMACH CRAMPING. PRN MEDS ADMINISTERED. pt BACK TO THE BED FROM THE BSC. pt DENIES ANY OTHER NEEDS AT THIS TIME. CALL LIGHT WITHIN REACH.
--- NOTE | 2025-01-28 21:40 | NUR ---
ASSESSMENT AND VITAL SIGNS DONE. pt GETTING BACK FROM THE BSC. pt BRUSHED TEETH. IV ASSESSED, WNL. PORT ASSESSED, WNL. IV ABX INFUSING PER ORDER. BOWEL TONES ACTIVE. pt HAS LIQUID, GREEN, BROWN STOOL. pt DENIES ANY OTHER NEEDS AT THIS TIME. CALL LIGHT WITHIN REACH.
--- NOTE | 2025-01-28 23:35 | NUR ---
pt RESTING IN THE BED. BSC EMPTIED. pt DENIES ANY OTHER NEEDS AT THIS TIME. CALL LIGHT WITHIN REACH.
[2025-01-29] VITALS (8 sets, daily range): BP systolic 116–150; BP diastolic 55–70
--- NOTE | 2025-01-29 01:23 | NUR ---
pt RESTING IN THE BED WITH EYES CLOSED. RR EVEN AND UNLABORED. CALL LIGHT WITHIN REACH.
--- NOTE | 2025-01-29 01:54 | NUR ---
IV ABX FINISHED INFUSING. pt GETTING UP TO THE BSC. pt DENIES ANY OTHER NEEDS AT THIS TIME. CALL LIGHT WITHIN REACH.
--- NOTE | 2025-01-29 03:06 | NUR ---
pt RESTING IN THE BED WITH EYES CLOSED. RR EVEN AND UNLABORED. CALL LIGHT WITHIN REACH.
--- NOTE | 2025-01-29 04:57 | NUR ---
pt RESTING IN THE BED WITH EYES CLOSED. RR EVEN AND UNLABORED. CALL LIGHT WITHIN REACH.
--- NOTE | 2025-01-29 05:30 | NUR ---
IN RM TO DO VITAL SIGNS. ASSESSMENT DONE. BLOOD DRAWN FROM PORT PER PROTOCOL. IVF RESTARTED. pt DENIES ANY OTHER NEEDS AT THIS TIME. CALL LIGHT WITHIN REACH.
[2025-01-29 05:44] LABS: BASOPHILS 0.8 % (0.2-1.2); EOSINOPHILS 1.6 % (0.8-7.0); LYMPHOCYTES 14.4 % (21.8-53.1); MCH 34.0 PG (25.7-32.2); MCHC 36.0 g/dL (32.3-36.5); MCV 94.6 fL (79.0-92.2); MONOCYTES 13.1 % (5.3-12.2); NEUTROPHILS 65.6 % (34.0-67.9); RBC 3.32 M/uL (4.63-6.08)
[2025-01-29 06:01] LABS: ALT (SGPT) 14.0 U/L (14-59); AST (SGOT) 15.0 U/L (15-37); GLOMERULAR FILTRATION RATE,EST 90.0 mL/min (>60); PHOSPHORUS, INORGANIC 1.9 mg/dL (2.5-4.9); PROTEIN, TOTAL 4.6 g/dL (6.4-8.2); UREA NITROGEN 5.0 mg/dL (7-18)
--- NOTE | 2025-01-29 07:37 | NUR ---
WENT INTO ROOM, CHANGED WHITE BOARD AND CLEANED COMMODE. RECORDED OUTPUT AND GAVE PT WARM WASH CLOTH FOR FDACE AND HANDS. GOT PT FRESH ICE WATER FOR BREAKFAST. CALL LIGHT WITHIN REACH, PT REPORTED NEEDING NOTHING MORE AT THIS TIME.
--- NOTE | 2025-01-29 07:49 | NUR ---
REPORT RECEIVED FROM MINA LOPEZ
--- NOTE | 2025-01-29 09:40 | NUR ---
Spoke with Huy. He lives alone. Friends assist him. Pt states since 5 am he has began to feel a lot better. He denies any needs to go home. Friend will bring him clean clothing for dc.
[2025-01-29] MEDS ORDERED: POTASSIUM PHOSPHATE 30 MMOL in DEXTROSE 5% 500 ML IV ONE (10:00)
--- NOTE | 2025-01-29 10:32 | NUR ---
K PHOS IS INFUSING FOR 6 HOURS TO RIGHT ARM IV SITE. PATIENT DENIES OTHER NEEDS AT THIS TIME.
--- NOTE | 2025-01-29 10:38 | NUR ---
PT IN BED, RECEIVING IV MEDICATION. PT HAS FRESH WATER NEAR BED. CALL LIGHT WITHIN REACH, PT REPORTS NEEDING NOTHING MORE AT THIS TIME. ROOM IS VERY WARM.
--- NOTE | 2025-01-29 12:28 | NUR ---
PT UP TO COMMODE FOR WATERY LIGHT GREEN TINGED STOOL. PT HAS NO REQUESTS AT THIS TIME. CALL LIGHT WITHIN REACH.
--- NOTE | 2025-01-29 12:52 | NUR ---
GOT PT WARM WASH CLOTH TO CLEAN FACE AND HANDS. EMPTIED COMMODE AFTER PT USE. PT WATCHING TV SITTING UP IN BED. PT DID NOT EAT A LOT OF LUNCH, BUT BREAKFAST WAS GREAT! CALL LIGHT WITHIN REACH AND PT HAS FRESH ICE WATER.
--- NOTE | 2025-01-29 15:00 | NUR ---
PT RESTING IN BED WITH EYES CLOSED AND RESPIRATIONS EVEN AND UNLABORED. CALL LIGHT WITHIN REACH.
--- NOTE | 2025-01-29 16:13 | NUR ---
PT RESTING IN BED VISITING WITH VISITOR. PT STATES OVERALL ABD PAIN IS SLIGHTLY LESS THAN YESTERDAY. PT HAS NO REQUESTS AT THIS TIME. CALL LIGHT WITHIN REACH.
--- NOTE | 2025-01-29 16:47 | NUR ---
PT SITTING UP IN BED VISITING WITH FAMILY. PT HAS NO REQUESTS AT THIS TIME. CALL LIGHT WITHIN REACH.
--- NOTE | 2025-01-29 18:46 | NUR ---
PT RESTING IN BED WITH EYES CLOSED AND RESPIRATIONS EVEN AND UNLABORED. CALL LIGHT WITHIN REACH.
--- NOTE | 2025-01-29 19:02 | NUR ---
PT DID NOT WANT A BED BATH, REEFUSED. CLEANED UP ROOM AND EMPTIED COMMODE. TOOK OUT TRASH TWICE THIS SHIFT.
--- NOTE | 2025-01-29 19:20 | NUR ---
REPORT RECEIVED FROM CIPRIANO ENRIQUEZ. pt SITTING UP ON THE BSC. BOARD UPDATED. pt DENIES ANY OTHER NEEDS AT THIS TIME. CALL LIGHT WITHIN REACH.
--- NOTE | 2025-01-29 22:10 | NUR ---
ASSESSMENT DONE. IV ABX INFUSING. pt UP TO THE BSC. PORT ASSESSED, WNL. IV ASSESSSED, WNL. BOWEL TONES ACTIVE. pt STILL HAVING LOOSE STOOL. pt DENIES ANY OTHER NEEDS AT THIS TIME. CALL LIGHT WITHIN REACH.
[2025-01-30] VITALS (9 sets, daily range): BP systolic 115–140; BP diastolic 58–69
--- NOTE | 2025-01-30 00:45 | NUR ---
IN RM TO HANG NEW BAG OF IVF. pt UP TO THE BSC. pt DENIES ANY NEEDS AT THIS TIME. CALL LIGHT WITHIN REACH.
--- NOTE | 2025-01-30 02:25 | NUR ---
IN RM TO EMPTY BSC. pt RESTING IN THE BED WITH EYES CLOSED. RR EVEN AND UNLABORED. CALL LIGHT WITHIN REACH. IV ABX FINISHED INFUSING.
--- NOTE | 2025-01-30 04:38 | NUR ---
pt RESTING IN THE BED WITH EYES CLOSED. RR EVEN AND UNLABORED. CALL LIGHT WITHIN REACH.
[2025-01-30 06:14] LABS: BASOPHILS 0.5 % (0.2-1.2); EOSINOPHILS 1.1 % (0.8-7.0); LYMPHOCYTES 12.8 % (21.8-53.1); MCH 33.6 PG (25.7-32.2); MCHC 35.8 g/dL (32.3-36.5); MCV 93.9 fL (79.0-92.2); MONOCYTES 13.2 % (5.3-12.2); NEUTROPHILS 69.8 % (34.0-67.9); RBC 3.30 M/uL (4.63-6.08)
[2025-01-30 06:33] LABS: ALT (SGPT) 16.0 U/L (14-59); AST (SGOT) 16.0 U/L (15-37); GLOMERULAR FILTRATION RATE,EST 84.0 mL/min (>60); PHOSPHORUS, INORGANIC 2.4 mg/dL (2.5-4.9); PROTEIN, TOTAL 4.7 g/dL (6.4-8.2); UREA NITROGEN 3.0 mg/dL (7-18)
--- NOTE | 2025-01-30 07:15 | NUR ---
REPORT RECEIVED FROM MINA LOPEZ. PT RESTING IN BED WITH NO REQUESTS AT THIS TIME. CALL LIGHT WITHIN REACH.
[2025-01-30] MEDS ORDERED: POTASSIUM PHOSPHATE 30 MMOL in DEXTROSE 5% 500 ML IV ONE (09:00)
--- NOTE | 2025-01-30 10:19 | NUR ---
PATIENT IN BED AT THIS TIME. SIDE SEAM MACHINE OPERATOR OFFERED CHAIR TO PATIENT, PATIENT DECLINED. CALL LIGHT WITHIN REACH, NO FURTHER NEEDS AT THIS TIME.
--- NOTE | 2025-01-30 10:45 | NUR ---
Spoke with Huy. Updated [facility]. They stated he did not need to start chemo on . Pt has a fu appt. She also states they attempted to get Huy to go to the ER for his diarrhea. They also ordered lomotil, he took one dose and did not take any more. I updated him to our conversation. He started saying he will call so he can get to the appointment. I reminded him I spoke with them and he can change the appt if he is not ready for dc. This appt is a fu appt and not to start chemo.
--- NOTE | 2025-01-30 11:00 | NUR ---
PT RESTING IN BED, NO REQUESTS AT THIS TIME. CALL LIGHT WITHIN REACH. PT STATES HIS ABD PAIN HAS DECREASED TO 3/10 AND IS IMPROVED FROM YESTERDAY.
--- NOTE | 2025-01-30 11:30 | NUR ---
Spoke with Dr. Dawn. Dr. Velez called and would like pt placed in a SNF. will order PT to see if pt can meet criteria for placement.
[2025-01-30] MEDS ORDERED: HEParin SOD (PORCINE) 500 UNIT/5 ML ML IV ONE (12:00)
--- NOTE | 2025-01-30 12:07 | NUR ---
PT'S PORTACATH DEACCESSED D/T BEING ACCESSED WITH WRONG TUBING. PT TOLERATED WELL. NEEDLE INTACT, NO REDNESS/SWELLING NOTED, BANDAID APPLIED.
--- NOTE | 2025-01-30 12:20 | NUR ---
PATIENT IN BED AT THIS TIME. CLINICAL ABSTRACTOR CHARTED HOURLY ROUNDS, RN CIPRIANO IN AT THIS TIME. CALL LIGHT WITHIN REACH, NO FURTHER NEEDS.
[2025-01-30] MEDS ORDERED: DIPHENOXYLATE/ATROPINE 1 EA TAB PO SCH (14:07)
--- NOTE | 2025-01-30 14:11 | NUR ---
PATIENT IN CHAIR AT THIS TIME. PROJECT GEOLOGIST CHARTED VITALS AND I&O'S. CALL LIGHT WITHIN REACH, NO FURTHER NEEDS.
--- NOTE | 2025-01-30 14:31 | NUR ---
PT RESTING IN RECLINER WITH LEGS ELEVATED. PT GIVEN GRAPE JUICE REQUESTED. NO OTHER REQUESTS AT THIS TIME. CALL LIGHT WITHIN REACH.
--- NOTE | 2025-01-30 15:29 | NUR ---
PT SITTING IN RECLINER WITH LEGS ELEVATED AND CALL LIGHT WITHIN REACH. PT HAS NO REQUESTS AT THIS TIME.
--- NOTE | 2025-01-30 16:09 | NUR ---
PATIENT IN CHAIR AT THIS TIME. REPAIR ARMATURE WINDER HELPER PROVIDED PATIENT WITH CHG WIPES, PATIENT ABLE TO WIPE HIMSELF DOWN INDEPENDENTLY. CALL LIGHT WITHIN REACH, NO FURTHER NEEDS.
--- NOTE | 2025-01-30 18:10 | NUR ---
PT RESTING IN BED. PT CONTINUES TO HAVE LIQUID STOOLS, BUT WITH MORE SEDIMENT. CALL LIGHT WITHIN REACH. NO REQUESTS AT THIS TIME.
--- NOTE | 2025-01-30 18:31 | NUR ---
PATIENT IN BED AT THIS TIME. GREENHOUSE TRANSPLANTER CHARTED VITALS AND I&O'S. CALL LIGHT WITHIN REACH, NO FURTHER NEEDS AT THIS TIME.
--- NOTE | 2025-01-30 19:20 | NUR ---
REPORT RECEIVED FROM CIPRIANO ENRIQUEZ. pt RESTING IN THE BED. BOARD UPDATED. pt DENIES ANY OTHER NEEDS AT THIS TIME. CALL LIGHT WITHIN REACH.
--- NOTE | 2025-01-30 21:50 | NUR ---
ASSESSMENT DONE. BOWEL TONES ACTIVE. SCHEDULED MEDS ADMINISTERED. 2+ PITTING EDEMA NOTED IN pt LE. pt DENIES ANY OTHER NEEDS AT THIS TIME. CALL LIGHT WITHIN REACH.
--- NOTE | 2025-01-30 23:20 | NUR ---
pt RESTING IN THE BED WITH EYES CLOSED. RR EVEN AND UNLABORED. CALL LIGHT WITHIN REACH.
[2025-01-31] VITALS (7 sets, daily range): BP systolic 129–130; BP diastolic 57–62
--- NOTE | 2025-01-31 01:40 | NUR ---
pt RESTING IN THE BED WITH EYES CLOSED. RR EVEN AND UNLABORED. CALL LIGHT WITHIN REACH.
--- NOTE | 2025-01-31 04:06 | NUR ---
IN RM TO CHECK ON pt. BSC EMPTIED. pt STOOL SOFT. NEW BAG OF IVF INFUSING PER ORDER. pt DENIES ANY OTHER NEEDS AT THIS TIME. CALL LIGHT WITHIN REACH.
[2025-01-31 05:57] LABS: BASOPHILS 0.5 % (0.2-1.2); EOSINOPHILS 1.4 % (0.8-7.0); LYMPHOCYTES 12.9 % (21.8-53.1); MCH 34.4 PG (25.7-32.2); MCHC 36.3 g/dL (32.3-36.5); MCV 94.7 fL (79.0-92.2); MONOCYTES 10.6 % (5.3-12.2); NEUTROPHILS 73.0 % (34.0-67.9); RBC 3.20 M/uL (4.63-6.08)
[2025-01-31 06:14] LABS: ALT (SGPT) 16.0 U/L (14-59); AST (SGOT) 14.0 U/L (15-37); GLOMERULAR FILTRATION RATE,EST 80.0 mL/min (>60); PROTEIN, TOTAL 4.7 g/dL (6.4-8.2); UREA NITROGEN 5.0 mg/dL (7-18)
--- NOTE | 2025-01-31 06:30 | NUR ---
ASSESSMENT AND VITAL SIGNS DONE. SCHEDULED MEDS ADMINISTERED. pt STOOLS GETTING SOFTER. pt DENIES ANY OTHER NEEDS AT THIS TIME. CALL LIGHT WITHIN REACH.
--- NOTE | 2025-01-31 07:15 | NUR ---
RECIEVED REPORT FROM MINA MACE. PT IS RESTING IN BED, TALKING WITH VISITOR. RR EVEN AND UNLABORED. CALL LIGHT AND PERSONAL BELONGINGS ARE WITHIN REACH. PT ASSISTED TO SIDE OF BED TO USE URINAL.
--- NOTE | 2025-01-31 10:40 | NUR ---
DR FITZGERALD AND OT AT BEDSIDE
--- NOTE | 2025-01-31 11:16 | NUR ---
PATIENT IV FLUSED WITH 10ML OF NS AND IS SALINE LOCKED AT THIS TIME FOR PT TO AMBULATE PATIENT IN HALLS.
--- NOTE | 2025-01-31 11:23 | NUR ---
PT AMBULATING HALLS WITH PHYSICAL THERAPY. BACKHAUL DRIVER ACCOMPANIED FOR A SHORT DISTANCE. PROVIDED SUPPORTIVE PRESENCE, PRAYER.
--- NOTE | 2025-01-31 12:04 | NUR ---
PATIENT SITTING UP IN HIS CHAIR. IV FLUSED WITH 10ML OF NS, IV FLUIDS INFUSING PER ORDER. URINAL AND COMODE EMPTIED. PATIENT WITHOUT FURTHER NEEDS AT THIS TIME. CALL LIGHT AND PERSONAL BELONGINGS ARE WITHIN REACH.
--- NOTE | 2025-01-31 12:30 | NUR ---
Spoke with Huy. He states he is feeling better. He denies needs and plans on dc to home when cleared medically. His friend Ian, stopped by the office. He states he and his will be checking in on him daily and reminding him to take his pills. Ian brought clean clothing. IM letter completed.
--- NOTE | 2025-01-31 13:02 | NUR ---
PATIENT SITTING UP IN HIS CHAIR. CLARE LEA IN ROOM ASSISTING PATIENT WITH LINEN CHANGE AND OBTAINING VITAL SIGNS. PATIENT WITHOUT ANY NEEDS FROM THIS RN. CALL LIGHT AND PERSONAL BELONGINGS ARE WITHIN REACH.
--- NOTE | 2025-01-31 14:47 | NUR ---
SBA AMULATION WITH THIS METAL SMELTER. PATIENT USED A CANE WHILE WALKING. PATIENT TOLERATED AMBULATION WELL AND REMAINED STEADY ON THEIR FEET WITH NO REPORTS OF DIZZINESS. PATIENT RETURNED TO SIT IN THEIR RECLINER ONCE DONE. BED LINENS WERE CHANGED. CALL LIGHT AND PERSONAL ITEMS ARE WITHIN REACH.
--- NOTE | 2025-01-31 16:24 | NUR ---
PT SITTING UP IN CHAIR WITH BLE ELEVATED, TALKING WITH FAMILY. RR EVEN AND UNLABORED, DENIES ANY NEEDS AT THIS TIME. CALL LIGHT AND PERSONAL BELONGINGS ARE WITHIN REACH.
--- NOTE | 2025-01-31 18:35 | NUR ---
PT RESTING IN BED WITH EYES CLOSED, RR EVEN AND UNLABORED. CALL LIGHT AND PERSONAL BELONGINGS ARE WITHIN REACH.
--- NOTE | 2025-01-31 19:25 | NUR ---
REPORT RECIVED FROM MINA FERRARI. PATIENT LAYING IN BED AWAKE AND ALERT. NO NEEDS AT THIS TIME. CALL LIGHT IN REACH.
--- NOTE | 2025-01-31 21:12 | NUR ---
VS OBTAINED AND DOCUMENTED, ASSESSMENT COMPLETED. UP TO BSC WITHOUT ASSISTANCE, BACK TO BED WTIHOUT DIFFICULTY. SCHEDULED MEDICATIONS ADMINISTERED PER ORDER. IVF CONTINUING WITHOUT DIFFICULTY. PT DENIES FURTHER NEEDS. CALL LIGHT IN REACH.
--- NOTE | 2025-01-31 22:33 | NUR ---
ROUNDED ON PATIENT, PATIENT RESTING WITH EYES CLOSED, RESPIRATIONS EVEN AND UNLABORED. NO NEEDS IDENTIFIED, IVF CONTINUING TO INFUSE PER ORDER. CALL LIGHT IN REACH
--- NOTE | 2025-02-01 00:54 | NUR ---
PATIENT RESTING WITH EYES CLOSED, RESPIRAITONS EVEN AND UNLABORED. NO NEEDS IDENTIFIED, IVF CONTINUING TO INFUSE PER ORDER, IV MEDICATION COMPLETE AT THIS TIME. NO NEEDS, CALL LIGHT IN REACH
--- NOTE | 2025-02-01 03:33 | NUR ---
ROUNDED ON PATIENT, RESPIRATIONS EVEN AND UNLABORED. RESTING WITH EYES CLOSED. CALL LIGHT IN REACH, IVF CONTINUING TO INFUSE PER ORDER.
[2025-02-01 05:16] LABS: BASOPHILS 0.8 % (0.2-1.2); EOSINOPHILS 1.7 % (0.8-7.0); LYMPHOCYTES 15.1 % (21.8-53.1); MCH 34.0 PG (25.7-32.2); MCHC 35.3 g/dL (32.3-36.5); MCV 96.4 fL (79.0-92.2); MONOCYTES 10.0 % (5.3-12.2); NEUTROPHILS 70.5 % (34.0-67.9); RBC 3.32 M/uL (4.63-6.08)
[2025-02-01 05:30] VITALS: BP 144/67
[2025-02-01 05:32] LABS: ALT (SGPT) 14.0 U/L (14-59); AST (SGOT) 16.0 U/L (15-37); GLOMERULAR FILTRATION RATE,EST 78.0 mL/min (>60); PROTEIN, TOTAL 5.1 g/dL (6.4-8.2); UREA NITROGEN 7.0 mg/dL (7-18)
--- NOTE | 2025-02-01 05:35 | NUR ---
PT SITTING UP IN BED WATCHING TV. EMPTIED THE COMMODE. TOOK OUT TRASH AND CLEANED UP THE ROOM. PT HAS WATER NEXT TO HIS BED. CALL LIGHT ON PT'S LAP. PT REPORTED NEEDING NOTHING MORE AT THIS TIME.
--- NOTE | 2025-02-01 05:37 | NUR ---
GOT PT WARM WASH CLOTH FOR FACE AND HANDS. TOOK OUT TRASH AND CLEANED UP THE PT'S ROOM.
[2025-02-01 05:46] VITALS: BP 144/67
--- NOTE | 2025-02-01 05:52 | NUR ---
SCHEDULED MEDICATION GIVEN PER ORDER. PATIENT RESTING IN BED, SITTING UPRIGHT. RESPIRATIONS EVEN AND UNLABORED. IVF CONTINUING TO INFUSE PER ORDER. NEW IVF BAG HUNG. ABD ASSESSMENT COMPLETE, BOWEL TONES ACTIVE. PATIENT DENIES FURTHER NEEDS, CALL LIGHT IN REACH
--- NOTE | 2025-02-01 06:23 | NUR ---
RESULTS FROM GI PROFILE SHOWN TO PRIMARY MINA Pedraza AND THEN PLACED ON DR VALIENTE DESK FOR REVIEW.
--- NOTE | 2025-02-01 09:00 | NUR ---
Patient awake in bed eating breakfast, no acute distress. Patient is alert and oriented x4. IV fluids infusing per order. Patient reports improved abdominal pain. Patient denies needs at this time. Personal supplies and call light.
--- NOTE | 2025-02-01 09:45 | NUR ---
Spoke with uHy. He states he is feeling much better today. He plans on possible dc to home if his labs are unchanged. His friends will assist once he is home. We discussed needs and Huy denies he has any needs. He has multiple pieces of DME from when his was alive and broke her back. He is financially well off. No needs from at this time.
[2025-02-01 09:50] VITALS: BP 130/66
[2025-02-01 09:54] VITALS: BP 130/66
--- NOTE | 2025-02-01 12:19 | NUR ---
VISITED DURING SPIRITUAL CARE ROUNDS. PT IN OVERALL GOOD SPIRITS; NO IMMEDIATE NEEDS. RECONCILEMENT CLERK PROVIDED SUPPORTIVE PRESENCE, HOSPITALITY, PRAYER, FACILITATED INTERACTION WITH THERAPY ANIMAL. PT EXPRESSED GRATITUDE, HOPE.
[2025-02-01 12:46] LABS: GLOMERULAR FILTRATION RATE,EST 73.0 mL/min (>60); UREA NITROGEN 8.0 mg/dL (7-18)
[2025-02-01] MEDS ORDERED: SIMETHICONE80 MG PO (13:16)
[2025-02-01 13:53] VITALS: BP 129/53
[2025-02-01 14:00] VITALS: BP 129/53
== END 2025-02-01 16:01 | disposition home or self-care (01) | DRG 394 ==
LOC: ED 15:11 → MS 15:13
PROVIDERS: Emergency Medicine; Family Medicine; ADMIT Internal Medicine; ATTEND Student in an Organized Health Care Education/Training Program
DX: K52.1 Toxic gastroenteritis and colitis (principal); C18.9 Malignant neoplasm of colon, unspecified; T45.1X5A Adverse effect of antineoplastic and immunosuppressive drugs, initial encounter; E87.6 Hypokalemia; R06.6 Hiccough; R05.9 Cough, unspecified; M10.9 Gout, unspecified; E78.5 Hyperlipidemia, unspecified; M19.90 Unspecified osteoarthritis, unspecified site; I10 Essential (primary) hypertension; D64.81 Anemia due to antineoplastic chemotherapy; E83.39 Other disorders of phosphorus metabolism; E83.42 Hypomagnesemia; Z88.0 Allergy status to penicillin; Z88.2 Allergy status to sulfonamides; Z87.891 Personal history of nicotine dependence; Z79.82 Long term (current) use of aspirin
CPT/HCPCS: 36415; 36591; 71045; 74177; 80048; 80053; 81001; 83605; 83690; 83735; 84100; 85025; 87040; 87045; 87046; 87324; 87502; 96366; 96367; 96376; 97116; 97161; 97166; 97535; A9270; G0378; J0692; J1171; J3373; J3475; J3480; J3490; J7030; J7060; J7121; Q9967; U0002